=== PATIENT | male | born 1940 | race Caucasian/White ===

== ENCOUNTER 2016-11-22 13:49 | Day surgery (SDC) | payer OTHER ==
[~2016-11-22 13:49] MED LIST: CENTTAB9 PO; CIPR500T2 PO; LEVO88TA2 PO; LISI-363 PO; METR-1 PO; PROT40TA PO; ROBA500T PO; TERA5CAP3 PO; VITA250L PO; VITATAB25 PO
[2016-11-22 14:05] VITALS: BP 154/79; PULSE 75; RESP 20; TEMP 98.3; O2SAT 95
--- NOTE | 2016-11-22 17:44 | RADRPT ---
EXAM DATE/TIME: 11/22/2016 00:00 [facility] COMPARISON : No previous studies available for comparison. INDICATIONS : CONSULT FOR HEPATIC ABLATION OBJECTIVE: Temperature: 98.3 Heart Rate: 75 Blood Pressure: 154/79 Respiratory: 18 Oximetry: 95% PNEUMONIA VACCINE: YES HISTORY OF PRESENT ILLNESS: 76-year-old with known cirrhosis and an enlarging mass lesion in the hepatic dome PAST MEDICAL HISTORY : 1. Benign prostatic hyperplasia, BPH 2. Hypertension. 3. Hypothyriodism. 4. HEMOCHROMATOSIS 5. CIRRHOSIS 6. GI BLEED 7. PORTAL HYPERTENSION 8. LIVER MASS PAST SURGICAL HISTORY : 1. KNEE SURGERY-BOTH KNEES 2. COLONOSCOPY SOCIAL HISTORY : No alcohol use. Tobacco;former. ALLERGIES: IRON MEDICATIONS: 1. VITAMIN B12 500 mcg q.d. 2. CALCIUM 600/SNFC494 mg q.d. 3. SYNTHROID 88 mg q.d. 4. LISINOPRIL 20 mg q.d. 5. MULTIVITAMIN 1 mg q.d. 6. PANTOPRAZOLE 40 mg q.d. 7. TERASOZIN 5 mg q.d. 8. VITAMIN D3 1000 mcg q.d. PHYSICAL EXAMINATION: IMAGING STUDIES: Prior outside MRI was reviewed. This shows an enlarging mass lesion in the hepatic dome ASSESSMENT: Enlarging mass lesion in the hepatic dome with findings of cirrhosis PLAN: Patient is somewhat apprehensive about proceeding with intervention. I did discuss the options of cry oablation and embolization. Either way, I do believe its prudent to obtain a CT scan of the abdomen w ith and without contrast to determine if the lesion is visible on CT. Because of the position in the hepatic, the lesion may be amenable to Verran guidance. He plans to discuss his options with Dr. Ruby li. Patient will get back to us with his decision. TIME SPENT: 20 minutes Nagi Tobias MD on November 22, 2016 at 17:37 Board Certified Radiologist. This report was verified electronically.
== END 2016-11-22 14:45 | disposition home or self-care (01) ==
LOC: HROP 13:49 → HRIP 13:50 → HROP 14:45
PROVIDERS: ATTEND Radiology Body Imaging
DX: R16.0 Hepatomegaly, not elsewhere classified (principal); K74.60 Unspecified cirrhosis of liver; I10 Essential (primary) hypertension; N40.0 Benign prostatic hyperplasia without lower urinary tract symptoms; Z87.891 Personal history of nicotine dependence
CPT/HCPCS: 99212; G0463

== ENCOUNTER 2017-01-10 12:49 | Day surgery (SDC) | payer OTHER ==
[2017-01-10 13:22] VITALS: BP 136/81; PULSE 84; RESP 20; TEMP 98.2; O2SAT 92
--- NOTE | 2017-01-10 15:32 | RADRPT ---
EXAM DATE/TIME: 01/10/2017 00:00 [facility] COMPARISON : INDICATIONS : Liver Mass OBJECTIVE: Temperature: 98.2 Heart Rate: 84 Blood Pressure: 136/81 Respiratory: 20 Oximetry: 92 PNEUMONIA VACCINE: HISTORY OF PRESENT ILLNESS: 76 year-old with cirrhosis and pulmonary hypertension. Enlarging hypodense mass lesion near the hepat ic dome which is very difficult to see on postcontrast images. PAST MEDICAL HISTORY : 1. Hypertension. 2. Hypothyroidism. 3. Cirrhosis. 4. Hematochromotosis 5. GI bleed 6. BPH PAST SURGICAL HISTORY : 1. B knee arthroscopy SOCIAL HISTORY : No alcohol use. Tobacco;former. ALLERGIES: 1. Iron MEDICATIONS: 1. Levothyroxine 88 mcg q.d. 2. Pantopraxole 40 mg q.d. 3. Lisinopril 20 mg q.d. 4. Terazosin 5 mg q.d. 5. Multivitamin +Mineral q.d. PHYSICAL EXAMINATION: No acute distress. IMAGING STUDIES: Patient's latest CT from the end of December, and the previous MRI were reviewed. The showed lobula tions of the liver characteristic of cirrhosis. Enlarged varicosities are characteristic of portal hy pertension. 3 cm hypodensity near the hepatic dome is nonspecific ASSESSMENT: Enlarging hypodensity in the hepatic dome. Diagnostic considerations include hepatoma, regenerating n odule or cholangiocarcinoma. This is all on a background of cirrhosis and portal hypertension PLAN: Cryoablation TIME SPENT: 20 minutes Nagi Tobias MD on January 10, 2017 at 15:27 Board Certified Radiologist. This report was verified electronically.
[2017-01-11] MEDS ORDERED: LEVO88TA2 PO (08:24)
[2017-01-11] MEDS ORDERED: [UNRECOGNIZED DRUG - CODE] PO (08:24)
[2017-01-11] MEDS ORDERED: VITA1000 PO (08:24)
[2017-01-11] MEDS ORDERED: TERA5CAP3 PO (08:24)
[2017-01-11] MEDS ORDERED: LISI-515 PO (08:24)
[2017-01-11] MEDS ORDERED: CIPR-9 PO (08:24)
[2017-01-11] MEDS ORDERED: MULT1TAB84 PO (08:24)
[2017-01-11] MEDS ORDERED: PROT40TA PO (08:24)
== END 2017-01-10 14:45 | disposition home or self-care (01) ==
LOC: HROP 12:49 → HRIP 12:49 → HROP 14:45
PROVIDERS: ATTEND Internal Medicine Hematology & Oncology
DX: R16.0 Hepatomegaly, not elsewhere classified (principal)

== ENCOUNTER 2017-01-11 07:36 | Day surgery (SDC) | payer OTHER ==
[~2017-01-11] VITALS: Ht 182.9 cm; Wt 87.0 kg
[2017-01-11] VITALS (8 sets, daily range): BP systolic 92–139; BP diastolic 50–89; PULSE 63–88; RESP 16–20; TEMP 97.4–97.7; O2SAT 92–97
[2017-01-11] MEDS ORDERED: PROT40TA PO (08:24)
[2017-01-11] MEDS ORDERED: LEVO88TA2 PO (08:24)
[2017-01-11] MEDS ORDERED: [UNRECOGNIZED DRUG - CODE] PO (08:24)
[2017-01-11] MEDS ORDERED: CIPR-9 PO (08:24)
[2017-01-11] MEDS ORDERED: LISI-515 PO (08:24)
[2017-01-11] MEDS ORDERED: TERA5CAP3 PO (08:24)
[2017-01-11] MEDS ORDERED: MULT1TAB84 PO (08:24)
[2017-01-11] MEDS ORDERED: VITA1000 PO (08:24)
[2017-01-11] MEDS ORDERED: INSULIN HUMAN REGULAR 1,000 UNITS/10 ML VIAL SQ PRN (08:30)
[2017-01-11] MEDS ORDERED: LACTATED RINGER'S 1000 ML IV PRN (08:30)
[2017-01-11] MEDS ORDERED: METOPROLOL TARTRATE 25 MG TAB PO PRN (08:30)
[2017-01-11] MEDS ORDERED: SODIUM CHLORID 0.9% 500 ML IV PRN (08:30)
[2017-01-11] MEDS ORDERED: CHLORHEXIDINE GLUCONATE 2 % 1 PACK (2 CLOTHS) TOPICAL PRN (08:30)
[2017-01-11] MEDS ORDERED: POVIDONE IODINE 5% (ANTISEPSIS KIT) 4 APPLICATIONS EACH NARE PRN (08:30)
[2017-01-11] MEDS ORDERED: ceFAZolin 2 GM PREMIX 50 ML IV SCH (08:30)
[2017-01-11] MEDS ORDERED: SODIUM CHLOR 0.9% 1000 ML INJ 1,000 ML IV SCH (09:00)
[2017-01-11] MEDS ORDERED: PROPOFOL 200 MG/20 ML AMP IV ONE (09:04)
[2017-01-11] MEDS ORDERED: ONDANSETRON HCL 4 MG/2 ML VIAL IV PUSH ONE (09:04)
[2017-01-11 09:07] LABS: AUTOMATED NEUTROPHIL # 2.5 TH/MM3 (1.8-7.7); BASOPHIL % 0.8 % (0.0-2.0); EOSINOPHIL # 0.1 TH/MM3 (0-0.4); EOSINOPHIL % 3.6 % (0.0-4.0); HEMATOCRIT 42.2 % (39.0-51.0); LYMPHOCYTE # 0.8 TH/MM3 (1.0-4.8); MEAN CELL VOLUME 100.2 FL (80.0-100.0); MEAN CORPUSCULAR HEMOGLOBIN 33.6 PG (27.0-34.0); MEAN CORPUSCULAR HGB CONC 33.6 % (32.0-36.0); MONO % 9.5 % (0.0-8.0); NEUT % 65.1 % (16.0-70.0); PLATELET COUNT 82 TH/MM3 (150-450); RED BLOOD COUNT 4.21 MIL/MM3 (4.50-5.90); RED CELL DISTRIBUTION WIDTH 14.6 % (11.6-17.2); WHITE BLOOD COUNT 3.8 TH/MM3 (4.0-11.0)
[2017-01-11 09:08] LABS: HEMO FLAGS AUTO DIFF
[2017-01-11] MEDS ORDERED: LIDOCAINE 1%/EPINEPHrine 1:100,000 SOLN 20 ML VIAL ONE (09:15)
[2017-01-11 09:16] LABS: INTERNATIONAL NORMALIZED RATIO 1.2 RATIO; PROTHROMBIN TIME - PATIENT 13.8 SEC (9.8-11.6)
[2017-01-11 09:22] LABS: BICARBONATE 25.4 MEQ/L (21.0-32.0)
[2017-01-11 09:30] LABS: PLATELET ESTIMATE SMEAR LOW (NORMAL); PLATELET MORPHOLOGY NORMAL (NORMAL); SCAN/DIFF AUTO DIFF CONFIRMED
[2017-01-11] MEDS ORDERED: fentaNYL CITRATE 250 MCG/5 ML AMP ONE (13:47)
--- NOTE | 2017-01-11 13:57 | PD.RAD ---
Post CT Procedure Prog Note Pre Procedure Diagnosis: (1) Liver mass Post Procedure Diagnosis: (1) Liver mass Procedure Date: January 11, 2017 Supervising Radiologist: Nagi Tobias Proceduralist/Assist: RT Tiffanie(R)(CT) Anesthesia: General Plan of Activity Patient to Unit: PACU Patient Condition: Good See PACS Report for procedural detail/treatment Biopsy Imaging Guidance: CT Side: Right Biopsy Procedure: Liver (Cirrhosis with mass) Findings: Liver mass treated with 4-1.7 cryo needles Nagi Tobias MD January 11, 2017 13:57
--- NOTE | 2017-01-11 15:46 | EKG ---
Date Performed: 01/11/2017 Time Performed: 08:45:45 PTAGE: 76 years EKG: Sinus rhythm Compared to prior tracing no significant change NORMAL ECG PREVIOUS TRACING : 12/06/2014 21.10 DOCTOR: Gael Romero Interpretating Date/Time 01/11/2017 15:44:42
--- NOTE | 2017-01-11 17:16 | RADRPT ---
EXAM DATE/TIME: 01/11/2017 11:09 INDICATIONS : Liver mass. Anesthesia and pain control was provided by the Anesthesia department. Prophylactic antibiotics were administered with appropriate pre-procedure timing. Vancomycin within 2 hrs of procedure, Ancef (or alternative) within 1 hr of procedure start. Intra-procedural antibiotics were given as prescribed above. DEVICE(S): 1.) 16 gauge Cryoablation probe x4 (1.7) MEDICAL HISTORY : Cirrhosis. Hypertension. Hemochromatosis. Liver mass. SURGICAL HISTORY : None. ENCOUNTER: Initial ACUITY: 1 day PAIN SCORE: 0/10 LOCATION: Liver PROCEDURE : 1. CT guided cryoablation. Under sterile conditions and using aseptic technique with CT guidance the mass was localized and sati sfactory approach was taken to access the lesion. Using automated exposure control and adjustment of the mA and/or kV according to patient size, radiation dose was kept as low as reasonably achievable to obtain optimal diagnostic quality images. [place] Cryoprobes were employed using percutaneous technique employing the prescribed probes. A freeze-thaw, freeze-thaw technique was employed and serial imaging demonstrated an ice ball encomp assing the entire lesion. Post procedure images demonstrate expected postoperative changes without e vidence of hematoma. CONCLUSION: Uncomplicated cryoablation as above. Nagi Tobias MD on January 11, 2017 at 17:14 Board Certified Radiologist. This report was verified electronically.
== END 2017-01-11 17:49 | disposition home or self-care (01) ==
LOC: HROP 07:36 → HRIP 07:37 → HROP 17:49
PROVIDERS: ATTEND Internal Medicine Hematology & Oncology
DX: R16.0 Hepatomegaly, not elsewhere classified (principal); I10 Essential (primary) hypertension; K74.60 Unspecified cirrhosis of liver; E83.119 Hemochromatosis, unspecified
CPT/HCPCS: 47383; 77013; 80048; 85025; 85610; 85730; 93005; C2618; J3010; J2405

== ENCOUNTER 2017-01-20 13:12 | Day surgery (SDC) | payer OTHER ==
[~2017-01-20 13:12] MED LIST changes: -CENTTAB9 PO; +CIPR-9 PO; -CIPR500T2 PO; -LISI-363 PO; +LISI-515 PO; -METR-1 PO; +MULT1TAB84 PO; -ROBA500T PO; +VITA1000 PO; -VITA250L PO; -VITATAB25 PO; +[UNRECOGNIZED DRUG - CODE] PO
[2017-01-20 13:32] VITALS: BP 124/81; PULSE 85; RESP 20; TEMP 98.2; O2SAT 93
--- NOTE | 2017-01-20 14:14 | RADRPT ---
EXAM DATE/TIME: 01/20/2017 00:00 [place] Corrected on: February 02, 2017; Removed internal Tech note [facility] COMPARISON : INDICATIONS : FOLLOW UP LIVER CRYOABLATION OBJECTIVE: Temperature: 98.2 Heart Rate: 85 Blood Pressure: 124/81 Respiratory: 20 Oximetry: 93 HISTORY OF PRESENT ILLNESS: Post hepatic cryoablation PHYSICAL EXAMINATION: Cryoablation access sites are healing appropriately. No fluctuance or erythema. Patient has no compla ints ASSESSMENT: No issues post cryotherapy PLAN: Followup imaging in 3-6 months TIME SPENT: Zero minutes. Patient was seen by the nurse only. No questions for the Dr. Nagi Tobias MD on January 20, 2017 at 13:59 Board Certified Radiologist. This report was verified electronically.
== END 2017-01-20 13:55 | disposition home or self-care (01) ==
LOC: HROP 13:12 → HRIP 13:17 → HROP 13:55
PROVIDERS: ATTEND Radiology Body Imaging
DX: Z09 Encounter for follow-up examination after completed treatment for conditions other than malignant neoplasm (principal)

== ENCOUNTER 2017-05-11 07:17 | Inpatient (IN) | payer OTHER, MEDICARE ==
[2017-05-11] VITALS (7 sets, daily range): BP systolic 120–143; BP diastolic 69–78; PULSE 96–103; RESP 18–24; TEMP 97.4–98.6; O2SAT 92–98
[~2017-05-11] VITALS: Ht 182.9 cm; Wt 91.0 kg
[2017-05-11] MEDS ORDERED: IOHEXOL 350 MG/ML 10 ML VIAL (for RAD DIAG) IVCONTRAST ONE (07:18)
[2017-05-11] MEDS ORDERED: PANTOPRAZOLE INJ 80 MG in SODIUM CHLORIDE 0.9% INJ 35 ML IV ONE ×2 (07:41→22:56)
[2017-05-11] MEDS ORDERED: PANTOPRAZOLE INJ 80 MG in SODIUM CHLORIDE 0.9% INJ 100 ML IV SCH (07:41)
[2017-05-11] MEDS ORDERED: MULTTAB67 PO (07:42)
[2017-05-11] MEDS ORDERED: SODIUM CHLORIDE 0.9% FLUSH 10 ML FLUSH IVF PRN (07:45)
[2017-05-11] MEDS ORDERED: ONDANSETRON HCL 4 MG/2 ML VIAL IVP ONE (07:45)
--- NOTE | 2017-05-11 07:48 | PD ---
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 States he has been nauseous but not vomiting and did spit up a very small amount of red blood today. Pt complains of generalized abdominal pain for 2 days. Denies any fever, chest pain, sob, focal weakness or numbness. He follows with Dr. Henriquez and had MRI abdomen 04/15/17 that showed 5x3.3x3.4cm lesion in liver. Pt is to follow up in 8 weeks with repeat lab and repeat MRI in 16 weeks. Pt has not had follow up with GI after GI bleed in 2013. PFSH Past Medical History Cancer: Yes (POSSIBLE HAPATIC CARCANOMA ) Cardiovascular Problems: Yes Cirrhosis: Yes Diabetes: No Diminished Hearing: No Endocrine: Yes Gastrointestinal Disorders: Yes (black stools and vomiting blood last 2 days) Genitourinary: Yes Hypertension: Yes Implanted Vascular Access Dvce: No Musculoskeletal: No Neurologic: Yes Psychiatric: No Reproductive: Yes (enlarged prostrarte) Respiratory: Yes Immunizations Current: Yes Thyroid Disease: Yes Past Surgical History Pacemaker: No Other Surgery: Yes Social History Alcohol Use: No Tobacco Use: No Substance Use: No Allergies-Medications (Allergen,Severity, Reaction): Coded Allergies: codeine (Unverified Allergy, Severe, 05/11/17) AIRWAY ISSUE 01/11/2017 - Patient denies allergy; states it is his 's allergy. ferrous fumarate (Unverified Allergy, Severe, holds iron in blood, 05/11/17) not able to process iron efficiently ferrous sulfate (Unverified Allergy, Severe, holds iron in blood, 05/11/17) not able to process iron efficiently ferumoxytol (Unverified Allergy, Severe, holds iron in blood, 05/11/17) not able to process iron efficiently iron (Unverified Allergy, Severe, holds iron in blood, 05/11/17) not able to process iron efficiently multivitamin infusion, adult no.4 with vitamin K (Unverified Allergy, Severe, holds iron in blood, 05/11/17) not able to process iron efficiently multivitamin with iron,other minerals (Unverified Allergy, Severe, holds iron in blood, 05/11/17) not able to process iron efficiently Reported Meds & Prescriptions Reported Meds & Active Scripts Active Reported Multiple Vitamin 1 Tab 1 Tab PO DAILY Terazosin (Terazosin HCl) 5 Mg Cap 5 Mg PO HS Protonix (Pantoprazole Sodium) 40 Mg Tab 40 Mg PO DAILY Lisinopril 20 Mg Tab 20 Mg PO DAILY Levothyroxine (Levothyroxine Sodium) 88 Mcg Tab 88 Mcg PO DAILY D 1000 (Cholecalciferol) 1,000 Unit Tab 4,000 PO DAILY Review of Systems Except as stated in HPI: all other systems reviewed are Neg Physical Exam Narrative GENERAL: 76yo M in mild distress. SKIN: Focused skin assessment warm/dry. Pale. HEAD: Atraumatic. Normocephalic. EYES: Pupils equal and round. No scleral icterus. No injection or drainage. ENT: No nasal bleeding or discharge. Mucous membranes pink and moist. NECK: Trachea midline. No JVD. CARDIOVASCULAR: Regular rate and rhythm. No murmur appreciated. RESPIRATORY: No accessory muscle use. Clear to auscultation. Breath sounds equal bilaterally. GASTROINTESTINAL: Abdomen soft, +TTP RUQ. No rebound tenderness or guarding. RECTAL: Did not see much stool but hemaprompt positive. MUSCULOSKELETAL: No obvious deformities. No clubbing. No cyanosis. No edema. NEUROLOGICAL: Awake and alert. No obvious cranial nerve deficits. Motor grossly within normal limits. Normal speech. PSYCHIATRIC: Appropriate mood and affect; insight and judgment normal. Data Data Last Documented VS Vital Signs Date Time Temp Pulse Resp B/P (MAP) Pulse Ox O2 Delivery O2 Flow Rate FiO2 05/11/17 07:37 18 05/11/17 07:31 96 136/69 (91) 97 05/11/17 07:20 98.3 Room Air Orders Orders Basic Metabolic Panel (Bmp) (05/11/17 07:41) Complete Blood Count With Diff (05/11/17 07:41) Lipase (05/11/17 07:41) Ammonia (05/11/17 07:41) Prothrombin Time / Inr (Pt) (05/11/17 07:41) Act Partial Throm Time (Ptt) (05/11/17 07:41) Type And Screen (05/11/17 07:41) Ecg Monitoring (05/11/17 07:41) Iv Access Insert/Monitor (05/11/17 07:41) Oximetry (05/11/17 07:41) Ondansetron Inj (Zofran Inj) (05/11/17 07:45) Sodium Chloride 0.9% Flush (Ns Flush) (05/11/17 07:45) Sodium Chloride 0.9... W/Pantoprazole In (05/11/17 07:41) Sodium Chloride 0.9... W/Pantoprazole In (05/11/17 07:41) Hepatic Functional Panel (05/11/17 07:41) Ct Abd/Pel W Iv Contrast(Rout) (05/11/17 ) Urinalysis - C+S If Indicated (05/11/17 07:48) Consult Gastroenterology (05/11/17 ) (Hub Use Only)Inp Phy Cons/Ref (05/11/17 ) Iohexol 350 Inj (Omnipaque 350 Inj) (05/11/17 07:18) Comprehensive Metabolic Panel (05/12/17 06:00) Free Thyroxine (T4) (05/12/17 06:00) Hemoglobin (Hgb) A1c (05/12/17 06:00) Magnesium (Mg) (05/12/17 06:00) Phosphorus (Po4) (05/12/17 06:00) Thyroid Stimulating Hormone (05/12/17 06:00) Complete Blood Count With Diff (05/12/17 06:00) Lactulose Liq (Lactulose Liq) (05/11/17 11:15) Admit Order (Ed Use Only) (05/11/17 11:11) Labs Laboratory Tests Test 05/11/17 07:45 White Blood Count 4.1 TH/MM3 Red Blood Count 3.23 MIL/MM3 Hemoglobin 12.0 GM/DL Hematocrit 34.1 % Mean Corpuscular Volume 105.8 FL Mean Corpuscular Hemoglobin 37.0 PG Mean Corpuscular Hemoglobin Concent 35.0 % Red Cell Distribution Width 14.6 % Platelet Count 73 TH/MM3 Mean Platelet Volume 9.0 FL Neutrophils (%) (Auto) 72.8 % Lymphocytes (%) (Auto) 16.2 % Monocytes (%) (Auto) 8.7 % Eosinophils (%) (Auto) 1.7 % Basophils (%) (Auto) 0.6 % Neutrophils # (Auto) 3.0 TH/MM3 Lymphocytes # (Auto) 0.7 TH/MM3 Monocytes # (Auto) 0.4 TH/MM3 Eosinophils # (Auto) 0.1 TH/MM3 Basophils # (Auto) 0.0 TH/MM3 CBC Comment AUTO DIFF Differential Comment AUTO DIFF CONFIRMED Prothrombin Time 15.7 SEC Prothromb Time International Ratio 1.4 RATIO Activated Partial Thromboplast Time 27.7 SEC Blood Urea Nitrogen 20 MG/DL Creatinine 0.94 MG/DL Random Glucose 141 MG/DL Total Protein 6.3 GM/DL Albumin 2.4 GM/DL Calcium Level 9.4 MG/DL Alkaline Phosphatase 78 U/L Aspartate Amino Transf (AST/SGOT) 69 U/L Alanine Aminotransferase (ALT/SGPT) 51 U/L Total Bilirubin 2.7 MG/DL Direct Bilirubin 1.1 MG/DL Sodium Level 139 MEQ/L Potassium Level 4.0 MEQ/L Chloride Level 106 MEQ/L Carbon Dioxide Level 26.7 MEQ/L Anion Gap 6 MEQ/L Estimat Glomerular Filtration Rate 78 ML/MIN Indirect Bilirubin 1.6 MG/DL Ammonia 179 MCMOL/L Lipase 138 U/L MDM Medical Decision Making Medical Screen Exam Complete: Yes Emergency Medical Condition: Yes Differential Diagnosis Lower GI bleed vs. upper GI bleed vs. cirrhosis vs. diverticulitis Narrative Course 76yo M with PMH of liver cirrhosis, hepatocellular carcinoma here with black stool and spitting up blood. Pt has not had any episodes of hematemesis. Initially mildly tachycardic at 102bpm. Labs reviewed, no leukocytosis. H/H is low at 12/34.1. Last H/H was 14.2/42.2 but he had 12/35.2 in 2014. Ammonia is elevated at 179, will give lactulose. Pt with good mental status. AAOx3. Elevated bilirubin and AST. CTa/p showed low density lesion in liver. 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 Pt reevaluated at bedside after NS IVF and zofran and states he feels better. Pt states he wants to hold off on pain medication. Given pt's history, will admit for GI bleed and have GI evaluate the patient. GI consult placed. Discussed with hospitalist Dr. Kilgore and accepted to his service. [facility] Point of Care Internal Pos. & Neg. Controls: Passed Fecal Specimen Occult Blood: Positive Omayra Kaiser DO May 11, 2017 07:48
[2017-05-11 08:03] LABS: BASOPHIL % 0.6 % (0.0-2.0); EOSINOPHIL # 0.1 TH/MM3 (0-0.4); EOSINOPHIL % 1.7 % (0.0-4.0); HEMATOCRIT 34.1 % (39.0-51.0); LYMPH % 16.2 % (9.0-44.0); LYMPHOCYTE # 0.7 TH/MM3 (1.0-4.8); MEAN CELL VOLUME 105.8 FL (80.0-100.0); MONO % 8.7 % (0.0-8.0); NEUT % 72.8 % (16.0-70.0); PLATELET COUNT 73 TH/MM3 (150-450); RED BLOOD COUNT 3.23 MIL/MM3 (4.50-5.90); RED CELL DISTRIBUTION WIDTH 14.6 % (11.6-17.2); WHITE BLOOD COUNT 4.1 TH/MM3 (4.0-11.0)
[2017-05-11 08:10] LABS: HEMO FLAGS AUTO DIFF
[2017-05-11 08:13] LABS: APTT (PATIENT) 27.7 SEC (24.3-30.1); INTERNATIONAL NORMALIZED RATIO 1.4 RATIO; PROTHROMBIN TIME - PATIENT 15.7 SEC (9.8-11.6)
[2017-05-11 08:23] LABS: BICARBONATE 26.7 MEQ/L (21.0-32.0)
[2017-05-11 08:31] LABS: INDIRECT BILIRUBIN 1.6 MG/DL (0.0-0.8); TOTAL BILIRUBIN ADULT 2.7 MG/DL (0.2-1.0)
[2017-05-11 09:00] LABS: SCAN/DIFF AUTO DIFF CONFIRMED
--- NOTE | 2017-05-11 10:19 | RADRPT ---
EXAM DATE/TIME: 05/11/2017 09:33 [facility] COMPARISON: CT GUIDED CRYO ABLATION LIVER, RIGHT, January 11, 2017, 11:09. CT ABDOMEN & PELVIS W CONTRAST, December 06, 2014, 23:45. INDICATIONS : Nausea, dark stools, history of gastrointestinal bleeding. IV CONTRAST: 96 cc Omnipaque 350 (iohexol) IV ORAL CONTRAST: No oral contrast ingested. RADIATION DOSE: 12.32 CTDIvol (mGy) MEDICAL HISTORY : Cardiovascular disease. Hypertension. Liver cancer. SURGICAL HISTORY : Cryoablation of liver. ENCOUNTER: Initial ACUITY: 1 day PAIN SCALE: 0/10 LOCATION: lower quadrant TECHNIQUE: Volumetric scanning of the abdomen and pelvis was performed. Using automated exposure control and ad justment of the mA and/or kV according to patient size, radiation dose was kept as low as reasonably achievable to obtain optimal diagnostic quality images. DICOM format image data is available electro nically for review and comparison. FINDINGS: LOWER LUNGS: The visualized lower lungs are clear. LIVER: Cirrhotic appearance. Low density in the central dome at site of recently treated mass. No evidence o f biliary ductal dilatation. There is nonocclusive thrombus present in the visualized upper superior mesenteric vein extending into the portal vein. The portal vein is very small in caliber with primary shunting of portal venous return through massive variceal collaterals including enormous gastric fun lakisha varices. SPLEEN: Enlarged. Scattered tiny granulomatous calcifications and mild lateral capsular calcification. PANCREAS: Within normal limits. KIDNEYS: Normal in size and shape. There is no mass, stone or hydronephrosis. ADRENAL GLANDS: Within normal limits. VASCULAR: There is no aortic aneurysm. BOWEL/MESENTERY: Massive gastric fundal varices. Mild distention of the stomach. Distal colonic diverticulosis without evidence of abnormal dilatation, wall thickening or focal inflammatory change. ABDOMINAL WALL: Small fat containing umbilical hernia. RETROPERITONEUM: There is no lymphadenopathy. BLADDER: No wall thickening or mass. REPRODUCTIVE: Within normal limits. INGUINAL: There is no lymphadenopathy or hernia. MUSCULOSKELETAL: Within normal limits for patient age. CONCLUSION: Low-density lesion in the liver related to recent cryoablation of liver mass. Baseline cirrhotic treviño ge and stigmata of severe portal hypertension. 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 Colonic diverticulosis Timmy Dawn MD on May 11, 2017 at 10:07 Board Certified Radiologist. This report was verified electronically.
[2017-05-11] MEDS ORDERED: LACTULOSE SYRUP 20 GM/30 ML CUP PO PRN (11:15)
[2017-05-11] MEDS ORDERED: ACETAMINOPHEN 325 MG TAB PO PRN ×2 (11:15)
[2017-05-11] MEDS ORDERED: LACTULOSE SYRUP 20 GM/30 ML CUP PO ONE (11:15)
[2017-05-11] MEDS ORDERED: MAGNESIUM HYDROXIDE SUSP 30 ML CUP PO PRN (11:15)
[2017-05-11] MEDS ORDERED: NALOXONE HCL 0.4 MG/ML AMP IV PRN (11:15)
[2017-05-11] MEDS ORDERED: PROCHLORPERAZINE 25 MG SUPP RECTAL PRN (11:15)
[2017-05-11] MEDS ORDERED: SENNOSIDES 8.6 MG TAB PO PRN (11:15)
[2017-05-11] MEDS ORDERED: HALOPERIDOL LACTATE 5 MG/ML AMP IM PRN (11:15)
[2017-05-11] MEDS ORDERED: traMADol HCL 50 MG TAB PO PRN ×2 (11:15)
[2017-05-11] MEDS ORDERED: SODIUM CHLORIDE 0.9% FLUSH 10 ML FLUSH IV FLUSH PRN ×3 (11:15→11:30)
[2017-05-11] MEDS ORDERED: MORPHINE SULFATE 4 MG/ML INJ IV PRN ×2 (11:15)
[2017-05-11] MEDS ORDERED: BISACODYL 10 MG SUPP RECTAL PRN (11:15)
[2017-05-11] MEDS ORDERED: ONDANSETRON HCL 4 MG/2 ML VIAL IV PUSH ONE ×2 (12:00→22:15)
--- NOTE | 2017-05-11 12:50 | HHI.HP ---
[facility] Non-Staff Admission Diagnosis GI bleed Diagnoses: (1) Liver mass Diagnosis: Principal (2) Chronic thrombocytopenia Diagnosis: Principal (3) Abdominal pain Diagnosis: Principal (4) GI bleed Diagnosis: Principal (5) HTN (hypertension) Diagnosis: Secondary (6) Anemia due to acute blood loss (7) Hypothyroidism Diagnosis: Secondary (8) Hemochromatosis Diagnosis: Secondary Chief Complaint: Abdominal pain and swelling Travel History International Travel<30 Days: No Contact w/Intl Traveler <30 Da: No Traveled to Known Affected Are: No History of Present Illness 76yo M with PMH of presumed hepatocellular carcinoma, hemochromatosis, cirrhosis , upper GI bleed, BPH presents to the ED with c/o black tarry stool for 2 days. States he has been nauseous but not vomiting and did spit up a very small amount of red blood today. Pt complains of generalized abdominal pain for 2 days. Denies any fever, chest pain, sob, focal weakness or numbness. He follows with Dr. Henriquez and had MRI abdomen 04/15/17 that showed 5x3.3x3.4cm lesion in liver. Pt is to follow up in 8 weeks with repeat lab and repeat MRI in 16 weeks. Pt has not had follow up with GI after GI bleed in 2013. Has elevated ammonia level but is completely lucid and able to answer all questions totally appropriately Review of Systems Constitutional: COMPLAINS OF: Fatigue, DENIES: Diaphoretic episodes, Fever, Weight gain, Weight loss, Chills, Dizziness, Change in appetite Endocrine: DENIES: Heat/cold intolerance, Polydipsia, Polyuria, Polyphagia Eyes: DENIES: Blurred vision, Diplopia, Eye inflammation, Eye pain, Vision loss , Photosensitivity Ears, nose, mouth, throat: DENIES: Tinnitus, Hearing loss, Vertigo, Nasal discharge, Oral lesions, Throat pain, Hoarseness, Ear Pain Respiratory: DENIES: Cough, Snoring, Wheezing, Hemoptysis, Sputum production, Shortness of breath Cardiovascular: DENIES: Chest pain, Palpitations, Syncope, Dyspnea on Exertion , PND, Lower Extremity Edema Gastrointestinal: COMPLAINS OF: Abdominal pain, Nausea, Vomiting, DENIES: Black stools, Bloody stools, Constipation, Diarrhea, Difficulty Swallowing Genitourinary: DENIES: Sexual dysfunction, Urinary frequency, Urinary incontinence, Urgency, Hematuria, Dysuria, Nocturia, Penile Discharge Musculoskeletal: DENIES: Joint pain, Muscle aches, Stiffness, Joint Swelling Integumentary: DENIES: Abnormal pigmentation, Nail changes, Pruritus Hematologic/lymphatic: DENIES: Bruising, Lymphadenopathy Immunologic/allergic: DENIES: Eczema, Urticaria Neurologic: DENIES: Abnormal gait, Headache, Localized weakness, Paresthesias, Seizures, Speech Problems Psychiatric: DENIES: Anxiety, Confusion, Mood changes, Depression, Hallucinations, Agitation, Suicidal Ideation, Homicidal Ideation Past Family Social History Past Medical History Hepatocellular carcinoma Hemochromatosis Cirrhosis History of upper GI bleed BPH Hypertension Hypothyroidism GERD Past Surgical History Bilateral knee surgeries Reported Medications Reported Meds & Active Scripts Active Reported Multiple Vitamin 1 Tab 1 Tab PO DAILY Terazosin (Terazosin HCl) 5 Mg Cap 5 Mg PO HS Protonix (Pantoprazole Sodium) 40 Mg Tab 40 Mg PO DAILY Lisinopril 20 Mg Tab 20 Mg PO DAILY Levothyroxine (Levothyroxine Sodium) 88 Mcg Tab 88 Mcg PO DAILY D 1000 (Cholecalciferol) 1,000 Unit Tab 4,000 PO DAILY Allergies: Coded Allergies: codeine (Unverified Allergy, Severe, 05/11/17) AIRWAY ISSUE 01/11/2017 - Patient denies allergy; states it is his 's allergy. ferrous fumarate (Unverified Allergy, Severe, holds iron in blood, 05/11/17) not able to process iron efficiently ferrous sulfate (Unverified Allergy, Severe, holds iron in blood, 05/11/17) not able to process iron efficiently ferumoxytol (Unverified Allergy, Severe, holds iron in blood, 05/11/17) not able to process iron efficiently iron (Unverified Allergy, Severe, holds iron in blood, 05/11/17) not able to process iron efficiently multivitamin infusion, adult no.4 with vitamin K (Unverified Allergy, Severe, holds iron in blood, 05/11/17) not able to process iron efficiently multivitamin with iron,other minerals (Unverified Allergy, Severe, holds iron in blood, 05/11/17) not able to process iron efficiently Active Ordered Medications Current Medications Ondansetron HCl (Zofran Inj) 4 mg ONCE ONCE IVP Last administered on 05/11/17 11:29; Start 05/11/17 at 07:45; Stop 05/11/17 at 07:46; Status DC Sodium Chloride (NS Flush) 2 ml UNSCH PRN IVF FLUSH AFTER USING IV ACCESS; Start 05/11/17 at 07:45 Pantoprazole Sodium 80 mg/ Sodium Chloride 35 ml @ 420 mls/hr Q5M ONCE IV Last administered on 05/11/17 11:29; Start 05/11/17 at 07:41; Stop 05/11/17 at 07: 45; Status DC Pantoprazole Sodium 80 mg/ Sodium Chloride 100 ml @ 10 mls/hr Q10H IV Last administered on 05/11/17 11:29; Start 05/11/17 at 07:41 Iohexol (Omnipaque 350 Inj) 96 ml STK-MED ONCE IVCONTRAST Last administered on 05/11/17 07:18; Start 05/11/17 at 07:18; Stop 05/11/17 at 09:50; Status DC Lactulose (Lactulose Liq) 30 ml ONCE ONCE PO ; Start 05/11/17 at 11:15; Stop 05/11/17 at 11:16; Status DC Sodium Chloride (NS Flush) 2 ml UNSCH PRN IV FLUSH FLUSH AFTER USING IV ACCESS ; Start 05/11/17 at 11:15; Status UNV Sodium Chloride (NS Flush) 2 ml BID IV FLUSH ; Start 05/11/17 at 21:00; Status UNV Lactulose (Lactulose Liq) 30 ml Q6H PO ; Start 05/11/17 at 11:15; Status UNV Rifaximin (Xifaxan) 550 mg BID PO ; Start 05/11/17 at 21:00; Status UNV Haloperidol Lactate (Haldol Inj) 5 mg Q6H PRN IM AGITATION; Start 05/11/17 at 11 :15; Status UNV Thiamine HCl (Vitamin B1) 100 mg DAILY PO ; Start 05/12/17 at 09:00; Status UNV Sodium Chloride (NS Flush) 2 ml UNSCH PRN IV FLUSH FLUSH AFTER USING IV ACCESS ; Start 05/11/17 at 11:15; Status UNV Sodium Chloride (NS Flush) 2 ml BID IV FLUSH ; Start 05/11/17 at 21:00; Status UNV Acetaminophen (Tylenol) 650 mg Q4H PRN PO TEMP > 100.4; Start 05/11/17 at 11:15 ; Status UNV Ondansetron HCl (Zofran Inj) 4 mg Q6H PRN IVP NAUSEA OR VOMITING; Start at 11:15; Status UNV Prochlorperazine (Compazine Supp) 25 mg Q12H PRN SD NAUSEA OR VOMITING; Start 05/11/17 at 11:15; Status UNV Acetaminophen (Tylenol) 650 mg Q6H PRN PO PAIN SCALE 1 TO 2; Start 05/11/17 at 11:15; Status UNV Morphine Sulfate (Morphine Inj) 2 mg Q3H PRN IV Pain 3-5; if unable to take PO ; Start 05/11/17 at 11:15; Status UNV Morphine Sulfate (Morphine Inj) 4 mg Q3H PRN IV Pain 6-10;if unable to take PO ; Start 05/11/17 at 11:15; Status UNV Tramadol HCl (Ultram) 50 mg Q4H PRN PO PAIN SCALE 3 TO 5; Start 05/11/17 at 11: 15; Status UNV Tramadol HCl (Ultram) 100 mg Q4H PRN PO PAIN SCALE 6 TO 10; Start 05/11/17 at 11 :15; Status UNV Naloxone HCl (Narcan Inj) 0.4 mg UNSCH PRN IV SEE LABEL COMMENTS; Start at 11:15; Status UNV Senna/Docusate Sodium (Deana-Colace) 1 tab BID PO ; Start 05/11/17 at 21:00; Status UNV Magnesium Hydroxide (Milk Of Magnesia Liq) 30 ml Q12H PRN PO MILD - MODERATE CONSTIPATION; Start 05/11/17 at 11:15; Status UNV Sennosides (Senokot) 17.2 mg Q12H PRN PO MODERATE - SEVERE CONSTIPATION; Start 05/11/17 at 11:15; Status UNV Bisacodyl (Dulcolax Supp) 10 mg DAILY PRN RECTAL SEVERE CONSITIPATION; Start at 11:15; Status UNV Lactulose (Lactulose Liq) 30 ml DAILY PRN PO SEVERE CONSITIPATION; Start at 11:15; Status UNV Levothyroxine Sodium (Synthroid) 88 mcg DAILY PO ; Start 05/12/17 at 09:00; Status UNV Lisinopril (Prinivil) 20 mg DAILY PO ; Start 05/12/17 at 09:00; Status UNV Pantoprazole Sodium (Protonix) 40 mg DAILY PO ; Start 05/12/17 at 09:00; Stop 05/12/17 at 09:00; Status DC Terazosin HCl (Hytrin) 5 mg HS PO ; Start 05/11/17 at 21:00; Status UNV Non-Formulary Medication 1 tab DAILY PO ; Start 05/12/17 at 09:00; Status UNV Sodium Chloride (NS Flush) 2 ml UNSCH PRN IV FLUSH FLUSH AFTER USING IV ACCESS ; Start 05/11/17 at 11:30; Status UNV Sodium Chloride (NS Flush) 2 ml BID IV FLUSH ; Start 05/11/17 at 21:00; Status UNV Pantoprazole Sodium (Protonix Inj) 40 mg BID IV ; Start 05/11/17 at 21:00; Status UNV Family History Hypertension Social History Denies any current alcohol tobacco or illicits Physical Exam Vital Signs Vital Signs Date Time Temp Pulse Resp B/P (MAP) Pulse Ox O2 Delivery O2 Flow Rate FiO2 05/11/17 11:41 95 21 05/11/17 07:37 18 05/11/17 07:31 96 18 136/69 (91) 97 05/11/17 07:20 98.3 102 24 137/69 (91) 92 Room Air Physical Exam GENERAL: This is a well-nourished, well-developed patient, in no apparent distress. SKIN: No rashes, ecchymoses or lesions. Cool and dry. HEAD: Atraumatic. Normocephalic. No temporal or scalp tenderness. EYES: Pupils equal round and reactive. Extraocular motions intact. No scleral icterus. No injection or drainage. ENT: Nose without bleeding, purulent drainage or septal hematoma. Throat without erythema, tonsillar hypertrophy or exudate. Uvula midline. Airway patent. Tongue is midline NECK: Trachea midline. No JVD or lymphadenopathy. Supple, nontender, no meningeal signs. CARDIOVASCULAR: Regular rate and rhythm without murmurs, gallops, or rubs. S1- S2 no S3 or S4 no heave or thrill RESPIRATORY: Clear to auscultation. Breath sounds equal bilaterally. No wheezes , rales, or rhonchi. GASTROINTESTINAL: Abdomen soft, mild tenderness, distention. , or palpable masses. No guarding. Enlarged liver MUSCULOSKELETAL: Extremities without clubbing, cyanosis, or edema. No joint tenderness, effusion, or edema noted. No calf tenderness. Negative Homans sign bilaterally. NEUROLOGICAL: Awake and alert. Cranial nerves II through XII intact. Motor and sensory grossly within normal limits. Five out of 5 muscle strength in all muscle groups. Normal speech. Insight and judgment is good Mood and behavior is totally appropriate Laboratory Laboratory Tests Test 05/11/17 07:45 White Blood Count 4.1 Red Blood Count 3.23 Hemoglobin 12.0 Hematocrit 34.1 Mean Corpuscular Volume 105.8 Mean Corpuscular Hemoglobin 37.0 Mean Corpuscular Hemoglobin Concent 35.0 Red Cell Distribution Width 14.6 Platelet Count 73 Mean Platelet Volume 9.0 Neutrophils (%) (Auto) 72.8 Lymphocytes (%) (Auto) 16.2 Monocytes (%) (Auto) 8.7 Eosinophils (%) (Auto) 1.7 Basophils (%) (Auto) 0.6 Neutrophils # (Auto) 3.0 Lymphocytes # (Auto) 0.7 Monocytes # (Auto) 0.4 Eosinophils # (Auto) 0.1 Basophils # (Auto) 0.0 CBC Comment AUTO DIFF Differential Comment AUTO DIFF CONFIRMED Prothrombin Time 15.7 Prothromb Time International Ratio 1.4 Activated Partial Thromboplast Time 27.7 Blood Urea Nitrogen 20 Creatinine 0.94 Random Glucose 141 Total Protein 6.3 Albumin 2.4 Calcium Level 9.4 Alkaline Phosphatase 78 Aspartate Amino Transf (AST/SGOT) 69 Alanine Aminotransferase (ALT/SGPT) 51 Total Bilirubin 2.7 Direct Bilirubin 1.1 Sodium Level 139 Potassium Level 4.0 Chloride Level 106 Carbon Dioxide Level 26.7 Anion Gap 6 Estimat Glomerular Filtration Rate 78 Indirect Bilirubin 1.6 Ammonia 179 Lipase 138 Result Diagram: 05/11/17 0745 05/11/17 0745 Imaging Last Impressions Abdomen/Pelvis CT 05/11/17 0000 Signed Impressions: Service Date/Time: Thursday, May 11, 2017 09:33 - CONCLUSION: Low-density lesion in the liver related to recent cryoablation of liver mass. Baseline cirrhotic change and stigmata of severe portal hypertension. 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 Colonic diverticulosis MD Belgica Thomas VTE Risk Assessment Caprini VTE Risk Assessment: Mod/High Risk (score >= 2) Caprini Risk Assessment Model Point Value = 1 Point Value = 2 Point Value = 3 Point Value = 5 Age 41-60 Minor surgery BMI > 25 kg/m2 Swollen legs Varicose veins or History of unexplained or recurrent spontaneous Oral contraceptives or hormone replacement Sepsis (< 1 month) Serious lung disease, including pneumonia (< 1 month) Abnormal pulmonary function Acute myocardial infarction Congestive heart failure (< 1 month) History of inflammatory bowel disease Medical patient at bed rest Age 61-74 Arthroscopic surgery Major open surgery (> 45 min) Laparoscopic surgery (> 45 min) Malignancy Confined to bed (> 72 hours) Immobilizing plaster cast Central venous access Age >= 75 History of VTE Family history of VTE Factor V Leiden Prothrombin [id number] Lupus anticoagulant Anticardiolipin antibodies Elevated serum homocysteine Heparin-induced thrombocytopenia Other congenital or acquired thrombophilia Stroke (< 1 month) Elective arthroplasty Hip, pelvis, or leg fracture Acute spinal cord injury (< 1 month) Prophylaxis Regimen Total Risk Factor Score Risk Level Prophylaxis Regimen 0-1 Low Early ambulation 2 Moderate Order ONE of the following: *Sequential Compression Device (SCD) *Heparin 5000 units SQ BID 3-4 Higher Order ONE of the following medications: *Heparin 5000 units SQ TID *Enoxaparin/Lovenox 40 mg SQ daily (WT < 150 kg, CrCl > 30 mL/min) *Enoxaparin/Lovenox 30 mg SQ daily (WT < 150 kg, CrCl > 10-29 mL/min) *Enoxaparin/Lovenox 30 mg SQ BID (WT < 150 kg, CrCl > 30 mL/min) AND/OR *Sequential Compression Device (SCD) 5 or more Highest Order ONE of the following medications: *Heparin 5000 units SQ TID (Preferred with Epidurals) *Enoxaparin/Lovenox 40 mg SQ daily (WT < 150 kg, CrCl > 30 mL/min) *Enoxaparin/Lovenox 30 mg SQ daily (WT < 150 kg, CrCl > 10-29 mL/min) *Enoxaparin/Lovenox 30 mg SQ BID (WT < 150 kg, CrCl > 30 mL/min) AND *Sequential Compression Device (SCD) Assessment and Plan Problem List: (1) Chronic thrombocytopenia Status: Chronic (2) Liver mass ICD Code: R16.0 - Hepatomegaly, not elsewhere classified Status: Acute (3) GI bleed ICD Code: K92.2 - GI bleed Status: Acute (4) HTN (hypertension) ICD Code: I10 - HTN (hypertension) Status: Acute (5) Abdominal pain ICD Code: R10.9 - Abdominal pain Status: Acute (6) Anemia due to acute blood loss ICD Code: D62 - Anemia due to acute blood loss Status: Acute (7) Hypothyroidism ICD Code: E03.9 - Hypothyroidism Status: Acute (8) Hemochromatosis ICD Code: E83.119 - Hemochromatosis Status: Acute (9) Diverticulitis ICD Code: K57.92 - Diverticulitis Status: Chronic Assessment and Plan Patient 76-year-old male with history of liver cirrhosis and hepatocellular carcinoma and hematochromatosis presented with the black stools and spitting up blood Has elevated ammonia level at 179 but is awake alert oriented talkative and cooperative and oriented 3 Has elevated bilirubin and AST Has CAT scan of the abdomen showed low density lesions in the liver also showed nonocclusive superior mesenteric venous and portal venous thrombosis Possible GI bleed with heme positive stool Consult GI. Will continue on lactulose will add rifaximin We'll get a.m. labs Cirrhosis by history and elevated ammonia level Has thrombocytopenia suspect secondary to cirrhosis has coagulopathy suspect secondary to cirrhosis and or hepatocellular disease Chronic hypothyroidism continue on Synthroid BPH continue on all medications Consult gastroenterology Mild anemia with heme positive stool rule out GI bleeding with history of varices Continue on PPI continue on lactulose continue on home medications and pain control as needed Follow throughout the admission frenular issues that may arise Code Status Full code Discussed Condition With Discussed with patient and RN and emergency room physician Physician Certification 2 Midnight Certification Type: Admission for Inpatient Services Order for Inpatient Services The services are ordered in accordance with Medicare regulations or non- Medicare payer requirements, as applicable. In the case of services not specified as inpatient-only, they are appropriately provided as inpatient services in accordance with the 2-midnight benchmark. Estimated LOS (days): 3 3 days is the estimated time the patient will need to remain in the hospital, assuming treatment plan goals are met and no additional complications. Post-Hospital Plan: Not yet determined John Hicks DO May 11, 2017 12:50
[2017-05-11 13:06] LABS: BLOOD, URINE NEG (NEG); COMMENT (UR) CULT NOT INDICATED; CULTURE IF INDICATED CULT NOT INDICATED; GLUCOSE,URINE NEG (NEG); KETONE, URINE NEG (NEG); MUCUS URINE FEW /lpf (OCC); NITRITE,URINE NEG (NEG); PH, URINE 7.5 (5.0-8.5); SQUAMOUS EPITHELIAL CELL URINE <1 /hpf (0-5); URINE COLOR YELLOW (YELLW/STRAW)
[2017-05-11] MEDS: ONDANSETRON HCL 4 MG/2 ML VIAL IVP PRN ×2 (14:51→23:19)
[2017-05-11] MEDS ORDERED: OCTREOTIDE INJ 500 MCG in SODIUM CHLORID 0.9% 500 ML INJ 499.5 ML IV SCH (16:15)
[2017-05-11] MEDS ORDERED: OCTREOTIDE INJ 50 MCG/ML AMP IV PUSH ONE ×2 (16:15→16:30)
[2017-05-11] MEDS: OCTREOTIDE INJ 500 MCG in SODIUM CHLORID 0.9% 500 ML INJ 499.5 ML IV SCH (17:25)
[2017-05-11] MEDS: LACTULOSE SYRUP 20 GM/30 ML CUP PO SCH ×3 (17:26→23:16)
--- NOTE | 2017-05-11 18:59 | MB ---
cc: LEONIDTITOGENNY DATE OF CONSULTATION 05/11/2017 REASON FOR CONSULTATION Evaluation of melena rule out upper GI bleeding source. History of cirrhosis, hepatocellular cancer. HISTORY OF PRESENT ILLNESS A pleasant 76-year-old male who has a past history of hepatocellular carcinoma, underlying hemochromatosis with cirrhosis. He has been followed by the [place] transplant service as he was evaluated there for transfer but he was deemed a poor surgical candidate. Therefore his transplantation will not be performed. 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 Mora in January of 2016. He did not follow up with us since that time. He has been followed by Dr. Jung Henriquez and he has received cryotherapy for the hepatocellular carcinoma. Last procedure was 2-1/2 months ago. He presents to emergency room with dark melanotic-like stools. For the past two or three days he has been having nausea, some dry heaves, feeling somewhat bloated. CT scan revealed changes from his cryo therapeutic intervention. There is a low-density liver lesion noted as well. He has stigmata of portal hypertension and cirrhotic changes. The patient has been complaining of nausea as stated above. He also has "spit up small amounts of blood-tinged sputum". He apparently has been taking a beta-jc at home prophylactically. His hemoglobin at presentation has been 12 grams. He denies any syncopal episodes. We were asked to evaluate him further at this time. PAST MEDICAL HISTORY His past history as mentioned again he has a history of: 1. Hypertension. 2. Hypothyroidism. 3. Previous history of upper GI bleed. MEDICATIONS Include: 1. Multivitamin. 2. Teroazsin. 3. Protonix. 4. Lisinopril. 5. Levothyroxine. His current medications include: 1. Lactulose. 2. Pantoprazole. 3. Xifaxin. 4. Ondansetron. 5. Morphine sulfate. 6. Tramadol. REVIEW OF SYSTEMS The 10 point review of systems as stated above. FAMILY HISTORY Noncontributory. SOCIAL HISTORY Denies alcohol use or tobacco use. ALLERGIES None. PHYSICAL EXAMINATION GENERAL: Well-developed male, alert and oriented times three in no acute distress. VITAL SIGNS: Stable. HEENT: Exam is unremarkable. NECK: Supple. CARDIOVASCULAR: S1-S2 regular rhythm. CHEST: Clear. ABDOMEN: The abdomen is soft, slightly tympanic. Bowel sounds are present. No masses or organomegaly. EXTREMITIES: Without clubbing, cyanosis or edema. RECTAL: Was deferred. IMPRESSION 1. Melena rule out upper GI bleeding source. 2. Trace amount of blood tinged sputum. 3. History of cirrhosis, portal hypertension, varices. 4. History of hepatocellular carcinoma. The patient is not a candidate for transplantation. 5. Nausea. PLAN I have added IV octreotide. We will proceed with EGD in the morning for reevaluation and to evaluate his nausea. The procedure, risks and benefits of endoscopy were discussed including risk of bleeding, infection, perforation risk and anesthesia. If esophageal varices are encountered we could consider banding those in the cardia. Will need further attention if needed by a TIPS procedure in the future. Would continue to monitor the H&H closely. The patient has been started on IV octreotide as well. Thank you for this consult. MD GLADIS Goff/MATT /4:25 PM /6:22 PM
[2017-05-11] MEDS ORDERED: PROPOFOL 200 MG/20 ML AMP IV PUSH ONE (20:40)
[2017-05-11] MEDS ORDERED: DO NOT ADM ANY ANTICOAGULANT DRUGS PRN (20:43)
[2017-05-11] MEDS ORDERED: *morphine SULFATE 8 MG/ML PERIprocedure ONLY ONE (20:54)
[2017-05-11] MEDS: SODIUM CHLORIDE 0.9% FLUSH 10 ML FLUSH IV FLUSH SCH (21:00)
[2017-05-11] MEDS: DOCUSATE SODIUM 50 MG/SENNA 8.6 MG TAB PO SCH (21:00)
[2017-05-11] MEDS ORDERED: SODIUM CHLORIDE 0.9% FLUSH 10 ML FLUSH IV FLUSH SCH ×2 (21:00)
[2017-05-11] MEDS ORDERED: PANTOPRAZOLE SODIUM 40 MG VIAL IV SCH (21:00)
[2017-05-11] MEDS ORDERED: PHYTONADIONE 10 MG/ML VIAL SQ ONE (21:00)
[2017-05-11] MEDS: TERAZOSIN HCL 5 MG CAP PO SCH (21:00)
[2017-05-11] MEDS: RIFAXIMIN 550 MG TAB PO SCH (21:00)
[2017-05-11 22:08] LABS: HEMATOCRIT 32.2 % (39.0-51.0); MEAN CELL VOLUME 106.9 FL (80.0-100.0); MEAN CORPUSCULAR HEMOGLOBIN 36.6 PG (27.0-34.0); MEAN CORPUSCULAR HGB CONC 34.3 % (32.0-36.0); PLATELET COUNT 104 TH/MM3 (150-450); RED BLOOD COUNT 3.01 MIL/MM3 (4.50-5.90); RED CELL DISTRIBUTION WIDTH 14.9 % (11.6-17.2); REVIEW FLAG FINAL; WHITE BLOOD COUNT 8.5 TH/MM3 (4.0-11.0)
--- NOTE | 2017-05-11 22:21 | HHI.PR ---
Addendum to Inpatient Note Addendum Reason: Additional Documentation Additional Information We were called by patient's nurse because patient's was vomiting coffee-ground color vomit. Patient returned back from EGD this evening. Patient has NG tube which was placed in the OR. Came to see patient at the bedside. Chart reviewed. Patient is awake, alert, oriented. However looks critically ill and pale. Patient reports nausea. Denies abdominal pain. NG tube is on low and is admitted suction with minimal coffee-ground, blood coming out which is just within the tube and not in the canister. Nursing staff showed me that around and bed sheets which where stained with coffee-ground color vomitus prior to my arrival. Family at the bedside also reports that patient was having clots when he vomited. On exam, patient is tachycardic with heart rate around 100. Bilateral decreased air entry at the bases. No significant jacqueline rales. Equal air entry. Abdomen is distended. Soft. Mild tenderness diffusely. No suprapubic distention. Bilateral lower extremityno significant edema. No calf asymmetry. Neurology: Awake, alert, oriented. Looks to be quite weak and frail. Grossly normal motor exam. Impression: Upper GI bleedlikely from variceal bleed. Patient with significant upper GI bleed- status post EGD today which revealed varices. Tachycardia- secondary to acute blood loss. Possible early hemorrhagic shock. CoagulopathyINR of 1.4 Elevated ammonia level with mentation preserved. Thrombocytopenia Liver cirrhosis Plan: Continue octreotide drip. Start patient back on Protonix IV drip. Stat hemoglobin hematocrit and every 6 hours. We need blood transfusion if hypotensive or remains to be tachycardic. Transfer patient to ICU stat. Inform patient's GI doctor stat. Possible if patient continues to bleed, might need repeat pending. Discontinue all sedative medications. Patient is cirrhotic patient with high risk for hepatorenal syndrome/hepatic encephalopathy. Continue lactulose. Vitamin K 10 mg subcutaneous daily, first dose now. Certified Alcohol Drug Counselor consult for critical care management. DVT prophylaxiswith SCD. critical care time 35min Jeremy Myles MD May 11, 2017 22:21
--- NOTE | 2017-05-11 22:42 | RADRPT ---
EXAM DATE/TIME: 05/11/2017 22:06 [place] COMPARISON: No previous studies available for comparison. INDICATIONS : Confirm NG tube placement. Nausea, dark stools, history of gastrointestinal bleeding. MEDICAL HISTORY : Cerebrovascular disease. Hypertension Liver cancer. SURGICAL HISTORY : Cryoablation of liver. ENCOUNTER: Subsequent ACUITY: 1 day PAIN SCORE: Non-responsive. LOCATION: Abdomen. FINDINGS: NG tip in stomach. Residual contrast in bladder. Mild ileus. Stomach distended. No free air. No acute bony abnormalities. CONCLUSION: 1. NG tube in stomach. Mild ileus. Distended stomach. Contrast in bladder. Shaun Moore MD on May 11, 2017 at 22:39 Board Certified Radiologist. This report was verified electronically.
[2017-05-11] MEDS: LEVOTHYROXINE SODIUM 88 MCG TAB PO SCH (23:16)
[2017-05-11] MEDS: PANTOPRAZOLE INJ 80 MG in SODIUM CHLORIDE 0.9% INJ 100 ML IV SCH (23:31)
[2017-05-12] VITALS (13 sets, daily range): BP systolic 100–130; BP diastolic 58–81; PULSE 87–105; RESP 13–24; TEMP 97.7–98.8; O2SAT 92–96
[2017-05-12 02:20] LABS: HEMATOCRIT 30.7 % (39.0-51.0); MEAN CELL VOLUME 107.6 FL (80.0-100.0); MEAN CORPUSCULAR HEMOGLOBIN 37.5 PG (27.0-34.0); MEAN CORPUSCULAR HGB CONC 34.8 % (32.0-36.0); PLATELET COUNT 95 TH/MM3 (150-450); RED BLOOD COUNT 2.86 MIL/MM3 (4.50-5.90); RED CELL DISTRIBUTION WIDTH 15.3 % (11.6-17.2); WHITE BLOOD COUNT 9.8 TH/MM3 (4.0-11.0)
[2017-05-12 02:21] LABS: REVIEW FLAG FINAL
[2017-05-12] MEDS: CHLORHEXIDINE GLUCONATE 2 % 1 PACK (2 CLOTHS)(taper/protocol) TOPICAL SCH (03:14)
[2017-05-12] MEDS: OCTREOTIDE INJ 500 MCG in SODIUM CHLORID 0.9% 500 ML INJ 499.5 ML IV SCH ×3 (03:14→23:43)
[2017-05-12] MEDS ORDERED: CHLORHEXIDINE GLUCONATE 2 % 1 PACK (2 CLOTHS)(extra cloths) TOPICAL PRN (03:15)
--- NOTE | 2017-05-12 03:38 | PD.CONS ---
[facility] Service Critical Care Medicine Consult Requested By Primary Care Physician Non-Staff History of Present Illness 76-year-old very pleasant gentleman with history of hepatocellular carcinoma, underlying hemochromatosis with cirrhosis. He has been followed by the [facility] transplant service as he was evaluated there for the liver transplant, however was considered as a poor surgical candidate and his transplantation will not be performed. He also has a past medical history of upper GI bleed, BPH and now presents with complaints of black tarry stool for last 2 days. He states he has been nauseous but not vomiting however did spit up a very small amount of red blood today. He complains of generalized abdominal pain for 2 days. Denies any fever, chest pain, sob, focal weakness or numbness. He follows with Dr. Henriquez and had MRI abdomen 04/15/17 that showed 5x3.3x3.4cm lesion in liver. He has not had follow up with GI after GI bleed in 2013. Patient was admitted to medical surgical floor however late last night he developed nausea vomiting of coffee-ground emesis and was transferred to ICU. Review of Systems Constitutional: COMPLAINS OF: Change in appetite, DENIES: Diaphoretic episodes , Fatigue, Fever, Weight gain, Weight loss, Chills, Dizziness, Night Sweats Endocrine: DENIES: Heat/cold intolerance, Polydipsia, Polyuria, Polyphagia Eyes: DENIES: Blurred vision, Diplopia, Eye inflammation, Eye pain, Vision loss , Photosensitivity, Double Vision Ears, nose, mouth, throat: DENIES: Tinnitus, Hearing loss, Vertigo, Nasal discharge, Oral lesions, Throat pain, Hoarseness, Ear Pain, Running Nose, Epistaxis, Sinus Pain, Toothache, Odynophagia Respiratory: DENIES: Apneas, Cough, Snoring, Wheezing, Hemoptysis, Sputum production, Shortness of breath Cardiovascular: DENIES: Chest pain, Palpitations, Syncope, Dyspnea on Exertion , PND, Lower Extremity Edema, Orthopnea, Claudication Gastrointestinal: COMPLAINS OF: Abdominal pain, Black stools, Nausea, DENIES: Bloody stools, Constipation, Diarrhea, Vomiting, Difficulty Swallowing, Anorexia Genitourinary: DENIES: Sexual dysfunction, Urinary frequency, Urinary incontinence, Urgency, Hematuria, Dysuria, Nocturia, Penile Discharge, Testicular Pain, Testicular Swelling Musculoskeletal: DENIES: Joint pain, Muscle aches, Stiffness, Joint Swelling, Back pain, Neck pain Integumentary: DENIES: Abnormal pigmentation, Nail changes, Pruritus, Rash Hematologic/lymphatic: DENIES: Bruising, Lymphadenopathy Immunologic/allergic: DENIES: Eczema, Urticaria Neurologic: DENIES: Abnormal gait, Headache, Localized weakness, Paresthesias, Seizures, Speech Problems, Tremor, Poor Balance Psychiatric: DENIES: Anxiety, Confusion, Mood changes, Depression, Hallucinations, Agitation, Suicidal Ideation, Homicidal Ideation, Delusions Past Family Social History Allergies: Coded Allergies: codeine (Unverified Allergy, Severe, 05/11/17) AIRWAY ISSUE 01/11/2017 - Patient denies allergy; states it is his 's allergy. ferrous fumarate (Unverified Allergy, Severe, holds iron in blood, 05/11/17) not able to process iron efficiently ferrous sulfate (Unverified Allergy, Severe, holds iron in blood, 05/11/17) not able to process iron efficiently ferumoxytol (Unverified Allergy, Severe, holds iron in blood, 05/11/17) not able to process iron efficiently iron (Unverified Allergy, Severe, holds iron in blood, 05/11/17) not able to process iron efficiently multivitamin infusion, adult no.4 with vitamin K (Unverified Allergy, Severe, holds iron in blood, 05/11/17) not able to process iron efficiently multivitamin with iron,other minerals (Unverified Allergy, Severe, holds iron in blood, 05/11/17) not able to process iron efficiently Past Medical History Hepatocellular carcinoma Hemochromatosis Cirrhosis History of upper GI bleed BPH Hypertension Hypothyroidism GERD Past Surgical History Bilateral knee surgeries Reported Medications Reported Meds & Active Scripts Active Reported Multiple Vitamin 1 Tab 1 Tab PO DAILY Terazosin (Terazosin HCl) 5 Mg Cap 5 Mg PO HS Protonix (Pantoprazole Sodium) 40 Mg Tab 40 Mg PO DAILY Lisinopril 20 Mg Tab 20 Mg PO DAILY Levothyroxine (Levothyroxine Sodium) 88 Mcg Tab 88 Mcg PO DAILY D 1000 (Cholecalciferol) 1,000 Unit Tab 4,000 PO DAILY Active Ordered Medications Current Medications Medications (Trade) Dose Ordered Sig/Efren Route PRN Reason Start Time Stop Time Status Last Admin Dose Admin Sodium Chloride (NS Flush) 2 ml UNSCH PRN IV FLUSH FLUSH AFTER USING IV ACCESS 05/11/17 11:15 Sodium Chloride (NS Flush) 2 ml BID IV FLUSH 05/11/17 21:00 05/11/17 21:00 Lactulose (Lactulose Liq) 30 ml Q6H PO 05/11/17 18:00 05/11/17 23:16 Rifaximin (Xifaxan) 550 mg BID PO 05/11/17 21:00 Thiamine HCl (Vitamin B1) 100 mg DAILY PO 05/12/17 09:00 Acetaminophen (Tylenol) 650 mg Q4H PRN PO TEMP > 100.4 05/11/17 11:15 Ondansetron HCl (Zofran Inj) 4 mg Q6H PRN IVP NAUSEA OR VOMITING 05/11/17 11:15 05/11/17 23:19 Acetaminophen (Tylenol) 650 mg Q6H PRN PO PAIN SCALE 1 TO 2 05/11/17 11:15 Naloxone HCl (Narcan Inj) 0.4 mg UNSCH PRN IV SEE LABEL COMMENTS 05/11/17 11:15 Senna/Docusate Sodium (Deana-Colace) 1 tab BID PO 05/11/17 21:00 Magnesium Hydroxide (Milk Of Magnesia Liq) 30 ml Q12H PRN PO MILD - MODERATE CONSTIPATION 05/11/17 11:15 Lactulose (Lactulose Liq) 30 ml DAILY PRN PO SEVERE CONSITIPATION 05/11/17 11:15 Levothyroxine Sodium (Synthroid) 88 mcg DAILY@0600 PO 05/12/17 06:00 Lisinopril (Prinivil) 20 mg DAILY PO 05/12/17 09:00 Terazosin HCl (Hytrin) 5 mg HS PO 05/11/17 21:00 Multivitamins (Theragran) 1 tab DAILY PO 05/12/17 09:00 Octreotide Acetate 500 mcg/ Sodium Chloride 500 ml @ 50 mls/hr Q10H IV 05/11/17 17:00 05/12/17 03:14 Metoclopramide HCl (Reglan Inj) 10 mg TID IV 05/12/17 09:00 Miscellaneous Information ALL NURSING DEPARTME... UNSCH PRN .XX SEE LABEL COMMENTS 05/11/17 20:43 05/12/17 20:42 Pantoprazole Sodium 80 mg/ Sodium Chloride 100 ml @ 10 mls/hr Q10H IV 05/11/17 22:56 05/11/17 23:31 Phytonadione (Vitamin K Inj) 10 mg DAILY SQ 05/12/17 09:00 Miscellaneous Information Patient in critical care unit? Ass... [id number] .XX 05/12/17 03:15 05/12/17 03:14 Chlorhexidine Gluconate (Chlorhexidine 2% Cloth) 3 pack DAILY@04 TOPICAL 05/12/17 04:00 05/16/17 04:01 05/12/17 03:14 Chlorhexidine Gluconate (Chlorhexidine 2% Cloth) 3 pack UNSCH PRN TOPICAL HYGIENIC CARE 05/12/17 03:15 05/17/17 03:09 Family History No family history of early coronary artery disease, liver disease or malignancy Positive for hypertension Social History No recent alcohol tobacco or illicit drug abuse Physical Exam Vital Signs Vital Signs Date Time Temp Pulse Resp B/P (MAP) Pulse Ox O2 Delivery O2 Flow Rate FiO2 05/12/17 02:00 104 05/12/17 00:00 100 05/12/17 00:00 98.0 100 13 100/81 (87) 05/11/17 22:46 98.6 103 20 120/78 (92) 98 05/11/17 21:00 108 10 140/79 (99) 95 Simple Mask 8 05/11/17 20:45 111 13 135/73 (93) 96 Simple Mask 8 05/11/17 20:41 112 13 134/73 (93) 97 Simple Mask 8 05/11/17 20:37 98.0 112 13 127/70 (89) 95 Simple Mask 8 05/11/17 20:00 97.4 103 18 137/74 (95) 96 05/11/17 17:07 05/11/17 16:10 98.3 103 18 143/78 (99) 96 05/11/17 14:53 101 18 124/71 (88) 96 Room Air 05/11/17 11:41 95 21 05/11/17 07:37 18 05/11/17 07:31 96 18 136/69 (91) 97 05/11/17 07:20 98.3 102 24 137/69 (91) 92 Room Air Physical Exam GENERAL: Well-nourished, well-developed patient. SKIN: Warm and dry. HEAD: Normocephalic. EYES: No scleral icterus. No injection or drainage. NECK: Supple, trachea midline. No JVD or lymphadenopathy. CARDIOVASCULAR: Regular rate and rhythm without murmurs, gallops, or rubs. RESPIRATORY: Breath sounds equal bilaterally. No accessory muscle use. GASTROINTESTINAL: Abdomen soft, non-tender, nondistended. MUSCULOSKELETAL: No cyanosis, or edema. BACK: Nontender without obvious deformity. NEURO EXAM: GCS: M 6 V 5 E 4 Mental Status: The patient is alert and oriented to person, place, and time with normal speech. Cranial Nerves: Pupils are round, reactive to light. Extraocular movements are intact without ptosis. Hearing is normal bilaterally. Voice is normal. Tongue protrudes midline and moves symmetrically. Reflexes: Biceps, patellar, and Achilles are 2/4 bilaterally. No clonus. Laboratory Laboratory Tests Test 05/11/17 07:45 05/11/17 12:35 05/11/17 21:25 05/11/17 22:45 White Blood Count 4.1 8.5 Red Blood Count 3.23 3.01 Hemoglobin 12.0 11.0 Hematocrit 34.1 32.2 Mean Corpuscular Volume 105.8 106.9 Mean Corpuscular Hemoglobin 37.0 36.6 Mean Corpuscular Hemoglobin Concent 35.0 34.3 Red Cell Distribution Width 14.6 14.9 Platelet Count 73 104 Mean Platelet Volume 9.0 8.6 Neutrophils (%) (Auto) 72.8 Lymphocytes (%) (Auto) 16.2 Monocytes (%) (Auto) 8.7 Eosinophils (%) (Auto) 1.7 Basophils (%) (Auto) 0.6 Neutrophils # (Auto) 3.0 Lymphocytes # (Auto) 0.7 Monocytes # (Auto) 0.4 Eosinophils # (Auto) 0.1 Basophils # (Auto) 0.0 CBC Comment AUTO DIFF Differential Comment AUTO DIFF CONFIRMED Prothrombin Time 15.7 Prothromb Time International Ratio 1.4 Activated Partial Thromboplast Time 27.7 Blood Urea Nitrogen 20 Creatinine 0.94 Random Glucose 141 Total Protein 6.3 Albumin 2.4 Calcium Level 9.4 Alkaline Phosphatase 78 Aspartate Amino Transf (AST/SGOT) 69 Alanine Aminotransferase (ALT/SGPT) 51 Total Bilirubin 2.7 Direct Bilirubin 1.1 Sodium Level 139 Potassium Level 4.0 Chloride Level 106 Carbon Dioxide Level 26.7 Anion Gap 6 Estimat Glomerular Filtration Rate 78 Indirect Bilirubin 1.6 Ammonia 179 Lipase 138 Urine Color YELLOW Urine Turbidity CLEAR Urine pH 7.5 Urine Specific [place] GREATER THAN 1.050 Urine Protein TRACE Urine Glucose (UA) NEG Urine Ketones NEG Urine Occult Blood NEG Urine Nitrite NEG Urine Bilirubin NEG Urine Urobilinogen LESS THAN 2.0 Urine Leukocyte Esterase NEG Urine RBC 1 Urine WBC 2 Urine Squamous Epithelial Cells <1 Urine Amorphous Sediment RARE Urine Mucus FEW Microscopic Urinalysis Comment CULT NOT INDICATED Nasal Screen MRSA (PCR) MRSA NOT DETECTED Test 05/12/17 01:57 White Blood Count 9.8 Red Blood Count 2.86 Hemoglobin 10.7 Hematocrit 30.7 Mean Corpuscular Volume 107.6 Mean Corpuscular Hemoglobin 37.5 Mean Corpuscular Hemoglobin Concent 34.8 Red Cell Distribution Width 15.3 Platelet Count 95 Mean Platelet Volume 8.9 Result Diagram: 05/12/17 0157 05/11/17 0745 Assessment and Plan Assessment and Plan Coffee-ground emesis - History of GI bleed - Hemochromatosis and liver cirrhosis - Gastroenterology following - Protonix drip - Octreotide drip - Series of H&H Hepatocellular carcinoma - Supportive care - Outpatient follow-up with Dr. Henriquez Hyperammonemia - With preserved mentation - Lactulose and Xifaxan when okay by mouth by GI Hypertension - Hytrin - Lisinopril Elevated INR - Due to liver failure - Vitamin K - FFP's if signs of active bleeding Hypothyroidism - Synthroid DVT GI prophylaxis - Teds SCDs - No pharmacological prophylaxis due to active GI bleed - Protonix drip Critical Care: The total critical care time was 35 minutes. Time to perform other separately billable procedures was not included in the critical care time. Maykel Keller MD May 12, 2017 3:38 am
[2017-05-12] MEDS: LACTULOSE SYRUP 20 GM/30 ML CUP PO SCH ×3 (04:27→17:19)
[2017-05-12] MEDS: ONDANSETRON HCL 4 MG/2 ML VIAL IVP PRN ×3 (05:46→23:12)
[2017-05-12 06:03] LABS: AUTOMATED NEUTROPHIL # 8.8 TH/MM3 (1.8-7.7); BASOPHIL % 0.3 % (0.0-2.0); EOSINOPHIL % 0.3 % (0.0-4.0); HEMATOCRIT 31.1 % (39.0-51.0); HEMO FLAGS DIFF FINAL; LYMPH % 9.6 % (9.0-44.0); MEAN CELL VOLUME 107.4 FL (80.0-100.0); MEAN CORPUSCULAR HEMOGLOBIN 36.6 PG (27.0-34.0); MEAN CORPUSCULAR HGB CONC 34.1 % (32.0-36.0); MONO % 8.5 % (0.0-8.0); NEUT % 81.3 % (16.0-70.0); PLATELET COUNT 106 TH/MM3 (150-450); RED CELL DISTRIBUTION WIDTH 15.3 % (11.6-17.2); WHITE BLOOD COUNT 10.8 TH/MM3 (4.0-11.0)
[2017-05-12 06:07] LABS: INTERNATIONAL NORMALIZED RATIO 1.4 RATIO; PROTHROMBIN TIME - PATIENT 15.9 SEC (9.8-11.6)
[2017-05-12 06:43] LABS: ALKALINE PHOSPHATASE 75 U/L (45-117); ALT (GPT) 47 U/L (12-78); ANION GAP 10 MEQ/L (5-15); AST (GOT) 58 U/L (15-37); BLOOD UREA NITROGEN 39 MG/DL (7-18); CHLORIDE 107 MEQ/L (98-107); GLOMERULAR FILTRATION RATE 53 ML/MIN (>89); MAGNESIUM 1.8 MG/DL (1.5-2.5); SODIUM (NA) 142 MEQ/L (136-145); TOTAL BILIRUBIN ADULT 3.1 MG/DL (0.2-1.0)
[2017-05-12] MEDS: PANTOPRAZOLE INJ 80 MG in SODIUM CHLORIDE 0.9% INJ 100 ML IV SCH ×2 (08:11→17:33)
[2017-05-12] MEDS: METOCLOPRAMIDE HCL 10 MG/2 ML VIAL IV SCH ×3 (08:12→17:19)
[2017-05-12] MEDS: SODIUM CHLORIDE 0.9% FLUSH 10 ML FLUSH IV FLUSH SCH ×2 (08:12→20:09)
[2017-05-12] MEDS: DOCUSATE SODIUM 50 MG/SENNA 8.6 MG TAB PO SCH ×2 (08:12→20:25)
[2017-05-12] MEDS: MULTIVITAMIN TAB PO SCH (08:13)
[2017-05-12] MEDS: RIFAXIMIN 550 MG TAB PO SCH ×2 (08:13→20:25)
[2017-05-12] MEDS: THIAMINE HCL 100 MG TAB PO SCH (08:13)
[2017-05-12] MEDS: LISINOPRIL 20 MG TAB PO SCH (08:13)
[2017-05-12] MEDS: PHYTONADIONE 10 MG/ML VIAL SQ SCH (08:13)
[2017-05-12] MEDS ORDERED: PANTOPRAZOLE SOD 40 MG DELAYED RELEASE TAB PO SCH (09:00)
[2017-05-12] MEDS: SODIUM CHLOR 0.9% 1000 ML INJ 1,000 ML IV SCH ×2 (09:26→20:09)
--- NOTE | 2017-05-12 10:19 | MR ---
cc: GENNY JAQUEZ DATE: 05/11/2017 07/24/1941 PROCEDURE Upper endoscopy. INDICATION FOR PROCEDURE The patient presented with hematemesis, melena, rule out upper GI bleeding source. PHOTOGRAPHS AND BIOPSIES Photographs were taken. No biopsy. PREMEDICATIONS Administered by anesthesiology. MONITORING Monitoring was accomplished with pulse oximeter, EKG, blood pressure monitor. The patient was intubated to protect the airway. PROCEDURE NOTE After informed consent was obtained and the procedure, risks and benefits were explained including the risks of bleeding, sepsis, perforation, risks of anesthesia, the patient was placed in left lateral position. The video endoscope was inserted per oral route. The esophagus was carefully inspected. The esophagus failed to reveal any esophageal varices as the patient has known cirrhosis due to hemochromatosis. There was blood maroon colored scattered in the esophagus. The EG junction was patent. 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 As the scope was passed in the stomach there was a large amount of clot material in the proximal stomach negating a complete exam. Suctioning was not possible as the clots kept clogging the scope. I did retroflex the scope, I could see a portion of the cardia and fundus. It was difficult to appreciate any active bleeding source of course, there was a question of whether there was some varices near the cardia but once again this was not completely visualized, photographs were taken. Blood was scattered throughout the stomach. I did not see any active bleeding source per se. The antrum was unremarkable. The pylorus was patent. Duodenal bulb was unremarkable and the first and second portion of the duodenum were unremarkable as well for any active bleeding source. After multiple attempts to try and remove some of the clots, this was unsuccessful and the scope was gradually withdrawn and an NG tube was placed and maroon colored blood was suctioned, about 200 ccs. The patient was extubated with stable vital signs. He tolerated this fairly well. IMPRESSION This examination revealed a large amount of old blood, maroon blood in the stomach, especially in the proximal portion which precluded a complete exam. I did not identify the bleeding source, although it is suspected the patient may have bled from a proximal varix in the stomach. The esophagus itself failed to reveal any active bleeding source or varices. PLAN We will continue IV octreotide. Monitor the H&H and transfuse as needed. We could consider a second look endoscopy at some point. We will start him on Reglan therapy to help clear the stomach of its contents. MD GLADIS Goff/KALE[place] /8:26 PM /9:49 AM
--- NOTE | 2017-05-12 10:41 | HHI.GIFU ---
Subjective Remarks lethargic but arousable NGT Dark blood total 500cc x 18hr hb 10.6 Objective Vitals I&O Vital Signs Date Time Temp Pulse Resp B/P (MAP) Pulse Ox O2 Delivery O2 Flow Rate FiO2 05/12/17 06:00 105 05/12/17 04:00 92 05/12/17 04:00 97.9 92 22 117/72 (87) 93 05/12/17 02:00 104 05/12/17 00:00 100 05/12/17 00:00 98.0 100 13 100/81 (87) 05/11/17 22:46 98.6 103 20 120/78 (92) 98 05/11/17 21:00 108 10 140/79 (99) 95 Simple Mask 8 05/11/17 20:45 111 13 135/73 (93) 96 Simple Mask 8 05/11/17 20:41 112 13 134/73 (93) 97 Simple Mask 8 05/11/17 20:37 98.0 112 13 127/70 (89) 95 Simple Mask 8 05/11/17 20:00 97.4 103 18 137/74 (95) 96 05/11/17 17:07 05/11/17 16:10 98.3 103 18 143/78 (99) 96 05/11/17 14:53 101 18 124/71 (88) 96 Room Air 05/11/17 11:41 95 21 I/O 05/11/17 05/11/17 05/11/17 05/12/17 05/12/17 05/12/17 06:59 14:59 22:59 06:59 14:59 22:59 Intake Total 35 ml 780 ml 0 ml 48 ml Output Total 700 ml Balance 35 ml 780 ml -700 ml 48 ml Intake Oral 480 ml 0 ml IV Total 35 ml 100 ml 48 ml Other 200 ml Output Urine Total 600 ml Gastric Drainage Total 100 ml # Voids 2 # Bowel Movements 0 0 Laboratory Laboratory Tests Test 05/11/17 12:35 05/11/17 21:25 05/11/17 22:45 05/12/17 01:57 Urine Color YELLOW Urine Turbidity CLEAR Urine pH 7.5 Urine Specific [place] GREATER THAN 1.050 Urine Protein TRACE Urine Glucose (UA) NEG Urine Ketones NEG Urine Occult Blood NEG Urine Nitrite NEG Urine Bilirubin NEG Urine Urobilinogen LESS THAN 2.0 Urine Leukocyte Esterase NEG Urine RBC 1 Urine WBC 2 Urine Squamous Epithelial Cells <1 Urine Amorphous Sediment RARE Urine Mucus FEW Microscopic Urinalysis Comment CULT NOT INDICATED White Blood Count 8.5 9.8 Red Blood Count 3.01 2.86 Hemoglobin 11.0 10.7 Hematocrit 32.2 30.7 Mean Corpuscular Volume 106.9 107.6 Mean Corpuscular Hemoglobin 36.6 37.5 Mean Corpuscular Hemoglobin Concent 34.3 34.8 Red Cell Distribution Width 14.9 15.3 Platelet Count 104 95 Mean Platelet Volume 8.6 8.9 Nasal Screen MRSA (PCR) MRSA NOT DETECTED Test 05/12/17 05:38 White Blood Count 10.8 Red Blood Count 2.90 Hemoglobin 10.6 Hematocrit 31.1 Mean Corpuscular Volume 107.4 Mean Corpuscular Hemoglobin 36.6 Mean Corpuscular Hemoglobin Concent 34.1 Red Cell Distribution Width 15.3 Platelet Count 106 Mean Platelet Volume 8.6 Neutrophils (%) (Auto) 81.3 Lymphocytes (%) (Auto) 9.6 Monocytes (%) (Auto) 8.5 Eosinophils (%) (Auto) 0.3 Basophils (%) (Auto) 0.3 Neutrophils # (Auto) 8.8 Lymphocytes # (Auto) 1.0 Monocytes # (Auto) 0.9 Eosinophils # (Auto) 0.0 Basophils # (Auto) 0.0 CBC Comment DIFF FINAL Differential Comment Prothrombin Time 15.9 Prothromb Time International Ratio 1.4 Blood Urea Nitrogen 39 Creatinine 1.31 Random Glucose 136 Total Protein 6.3 Albumin 2.5 Calcium Level 8.2 Phosphorus Level 4.4 Magnesium Level 1.8 Alkaline Phosphatase 75 Aspartate Amino Transf (AST/SGOT) 58 Alanine Aminotransferase (ALT/SGPT) 47 Total Bilirubin 3.1 Sodium Level 142 Potassium Level 5.0 Chloride Level 107 Carbon Dioxide Level 25.0 Anion Gap 10 Estimat Glomerular Filtration Rate 53 Ammonia 179 Free Thyroxine 1.10 Thyroid Stimulating Hormone 3rd Gen 0.585 Date/Time Source Procedure Growth Status 05/12/17 05:00 Urine Catheterized Urine Urine Culture Pending Received Physical Exam HEENT: Pupils round and reactive to light; normocephalic; atraumatic; no jaundice. Throat is clear. NECK: Neck is supple, no JVD, no lymphadenopathy. CHEST: Chest is clear to auscultation and percussion. CARDIAC: Regular rate and rhythm with no murmur gallop or rubs. ABDOMEN: Soft, nondistended, nontender; bowel sounds are present in all four quadrants. EXTREMITIES: No clubbing, cyanosis, or edema. [employer] [facility]: probable encephalopathic Assessment and Plan Assessment: (1) Encephalopathy ICD Codes: G93.40 - Encephalopathy, unspecified (2) Hemochromatosis ICD Codes: E83.119 - Hemochromatosis Status: Acute (3) GI bleed ICD Codes: K92.2 - GI bleed Status: Acute (4) Liver mass ICD Codes: R16.0 - Hepatomegaly, not elsewhere classified Status: Acute Plan Discussed case w at bedside ....cont w octreotide Gi Bleed may be 2 to gastric varix...appears stable at present will cont w lactulose as well Ammonia level noted elevated...prognosis gaurded for now but he could decompensate rapidly as well. Second look EGD planned for tomorrow as well. Benedict Davenport MD May 12, 2017 10:41
[2017-05-12 15:22] LABS: HEMATOCRIT 30.3 % (39.0-51.0); MEAN CELL VOLUME 109.2 FL (80.0-100.0); MEAN CORPUSCULAR HGB CONC 32.9 % (32.0-36.0); PLATELET COUNT 109 TH/MM3 (150-450); RED BLOOD COUNT 2.78 MIL/MM3 (4.50-5.90); RED CELL DISTRIBUTION WIDTH 15.8 % (11.6-17.2); REVIEW FLAG FINAL; WHITE BLOOD COUNT 11.8 TH/MM3 (4.0-11.0)
[2017-05-12] MEDS ORDERED: PROMETHAZINE INJ 25 MG/ML VIAL IV-CENTRAL ONE (17:15)
[2017-05-12 18:54] LABS: HEMATOCRIT 29.5 % (39.0-51.0); MEAN CELL VOLUME 109.2 FL (80.0-100.0); MEAN CORPUSCULAR HEMOGLOBIN 36.1 PG (27.0-34.0); MEAN CORPUSCULAR HGB CONC 33.1 % (32.0-36.0); PLATELET COUNT 101 TH/MM3 (150-450); RED CELL DISTRIBUTION WIDTH 15.6 % (11.6-17.2); REVIEW FLAG FINAL; WHITE BLOOD COUNT 11.6 TH/MM3 (4.0-11.0)
[2017-05-12] MEDS: TERAZOSIN HCL 5 MG CAP PO SCH (20:25)
[2017-05-13] VITALS (23 sets, daily range): BP systolic 116–144; BP diastolic 58–94; PULSE 80–110; RESP 12–31; TEMP 98–98.9; O2SAT 92–98
[2017-05-13] MEDS: CHLORHEXIDINE GLUCONATE 2 % 1 PACK (2 CLOTHS)(taper/protocol) TOPICAL SCH (00:23)
[2017-05-13] MEDS: PANTOPRAZOLE INJ 80 MG in SODIUM CHLORIDE 0.9% INJ 100 ML IV SCH ×2 (00:23→17:14)
[2017-05-13] MEDS: LACTULOSE SYRUP 20 GM/30 ML CUP PO SCH ×4 (00:23→17:15)
[2017-05-13 04:36] LABS: HEMATOCRIT 26.2 % (39.0-51.0); MEAN CELL VOLUME 108.1 FL (80.0-100.0); MEAN CORPUSCULAR HEMOGLOBIN 36.8 PG (27.0-34.0); PLATELET COUNT 87 TH/MM3 (150-450); RED BLOOD COUNT 2.42 MIL/MM3 (4.50-5.90); RED CELL DISTRIBUTION WIDTH 15.2 % (11.6-17.2); WHITE BLOOD COUNT 9.1 TH/MM3 (4.0-11.0)
[2017-05-13 04:43] LABS: REVIEW FLAG FINAL
[2017-05-13 04:47] LABS: INTERNATIONAL NORMALIZED RATIO 1.4 RATIO; PROTHROMBIN TIME - PATIENT 15.5 SEC (9.8-11.6)
[2017-05-13 05:08] LABS: ALKALINE PHOSPHATASE 66 U/L (45-117); ALT (GPT) 43 U/L (12-78); ANION GAP 11 MEQ/L (5-15); AST (GOT) 52 U/L (15-37); BICARBONATE 22.5 MEQ/L (21.0-32.0); BLOOD UREA NITROGEN 55 MG/DL (7-18); CHLORIDE 105 MEQ/L (98-107); GLOMERULAR FILTRATION RATE 58 ML/MIN (>89); MAGNESIUM 1.9 MG/DL (1.5-2.5); POTASSIUM 4.3 MEQ/L (3.5-5.1); SODIUM (NA) 138 MEQ/L (136-145); TOTAL BILIRUBIN ADULT 2.8 MG/DL (0.2-1.0)
[2017-05-13] MEDS: LEVOTHYROXINE SODIUM 88 MCG TAB PO SCH (06:00)
[2017-05-13] MEDS: SODIUM CHLOR 0.9% 1000 ML INJ 1,000 ML IV SCH ×2 (08:20→17:18)
[2017-05-13] MEDS: METOCLOPRAMIDE HCL 10 MG/2 ML VIAL IV SCH ×3 (08:53→17:15)
[2017-05-13] MEDS: MULTIVITAMIN TAB PO SCH (08:54)
[2017-05-13] MEDS: THIAMINE HCL 100 MG TAB PO SCH (08:54)
[2017-05-13] MEDS: RIFAXIMIN 550 MG TAB PO SCH ×2 (08:54→21:22)
[2017-05-13] MEDS: DOCUSATE SODIUM 50 MG/SENNA 8.6 MG TAB PO SCH ×2 (08:54→21:00)
[2017-05-13] MEDS: PHYTONADIONE 10 MG/ML VIAL SQ SCH (08:54)
[2017-05-13] MEDS: SODIUM CHLORIDE 0.9% FLUSH 10 ML FLUSH IV FLUSH SCH ×2 (08:54→21:22)
[2017-05-13] MEDS: LISINOPRIL 20 MG TAB PO SCH (08:55)
[2017-05-13] MEDS: ONDANSETRON HCL 4 MG/2 ML VIAL IVP PRN (09:00)
[2017-05-13] MEDS: OCTREOTIDE INJ 500 MCG in SODIUM CHLORID 0.9% 500 ML INJ 499.5 ML IV SCH ×2 (09:52→19:00)
--- NOTE | 2017-05-13 11:04 | HHI.CCPN ---
Subjective Remarks/Hospital Course 76-year-old very pleasant gentleman with history of hepatocellular carcinoma, underlying hemochromatosis with cirrhosis. He has been followed by the [facility] transplant service as he was evaluated there for the liver transplant, however was considered as a poor surgical candidate and his transplantation will not be performed. He also has a past medical history of upper GI bleed, BPH and now presents with complaints of black tarry stool for last 2 days. He states he has been nauseous but not vomiting however did spit up a very small amount of red blood today. He complains of generalized abdominal pain for 2 days. Denies any fever, chest pain, sob, focal weakness or numbness. He follows with Dr. Henriquez and had MRI abdomen 04/15/17 that showed 5x3.3x3.4cm lesion in liver. He has not had follow up with GI after GI bleed in 2013. Patient was admitted to medical surgical floor however late last night he developed nausea vomiting of coffee-ground emesis and was transferred to ICU. Subjective: 05/13: The patient is scheduled for repeat EGD this afternoon. Hemoglobin stable. The patient continues on lactulose twice a day ammonia level decreasing. Patient continues to have persistent nausea and continues on Zofran and Reglan, received 6.25 mg IV of Phenergan last evening with resolution of symptoms. Objective Vital Signs Date Time Temp Pulse Resp B/P (MAP) Pulse Ox O2 Delivery O2 Flow Rate FiO2 05/13/17 06:00 110 05/13/17 04:00 98.3 12 116/65 (82) 92 05/12/17 21:51 Nasal Cannula 6.00 05/11/17 11:41 21 Intake and Output 05/13/17 05/13/17 05/14/17 08:00 16:00 00:00 Intake Total 317 ml Output Total 950 ml Balance -950 ml 317 ml Result Diagram: 05/13/17 0352 05/13/17 0352 Imaging Last Impressions Abdomen/Pelvis CT 05/11/17 0000 Signed Impressions: Service Date/Time: Thursday, May 11, 2017 09:33 - CONCLUSION: Low-density lesion in the liver related to recent cryoablation of liver mass. Baseline cirrhotic change and stigmata of severe portal hypertension. 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 Colonic diverticulosis Timmy Dawn MD Abdomen X-Ray 05/11/17 0000 Signed Impressions: Service Date/Time: Thursday, May 11, 2017 22:06 - CONCLUSION: 1. NG tube in stomach. Mild ileus. Distended stomach. Contrast in bladder. Shaun Moore MD Objective Remarks GENERAL: Well-nourished, well-developed patient noticeably weak SKIN: Warm and dry. HEAD: Normocephalic. EYES: No scleral icterus. No injection or drainage. NECK: Supple, trachea midline. No JVD or lymphadenopathy. CARDIOVASCULAR: Regular rate and rhythm without murmurs, gallops, or rubs. RESPIRATORY: Breath sounds equal bilaterally. No accessory muscle use. GASTROINTESTINAL: Abdomen soft, non-tender, nondistended. MUSCULOSKELETAL: No cyanosis, or edema. BACK: Nontender without obvious deformity. NEURO EXAM: GCS: M 6 V 5 E 4 Mental Status: The patient is alert and oriented to person, place, and time with normal speech. Cranial Nerves: Pupils are round, reactive to light. Extraocular movements are intact without ptosis. Hearing is normal bilaterally. Voice is normal. Tongue protrudes midline and moves symmetrically. Cranial nerves II-XII grossly intact. Motor strength 5/5 bilateral upper and lower extremities. Reflexes: Biceps, patellar, and Achilles are 2/4 bilaterally. No clonus. Urinary Catheter: Yes Assessment to: Remove A/P Assessment and Plan Coffee-ground emesis - History of GI bleed - Hemochromatosis and liver cirrhosis - Gastroenterology following - Protonix drip - Octreotide drip - Series of H&H- Hgb 8.9 Hepatocellular carcinoma - Supportive care - Outpatient follow-up with Dr. Henriquez- heme made aware of patient's admission Hyperammonemia - With preserved mentation - Lactulose and Xifaxan when okay by mouth by GI - Hypertension - Hytrin - Lisinopril Elevated INR - Due to liver failure - Vitamin K - FFP's if signs of active bleeding Hypothyroidism - Synthroid MSK: Critical illness polyneuropathy -PT evaluation and treat DVT GI prophylaxis - Teds SCDs - No pharmacological prophylaxis due to active GI bleed - Protonix infusions Dispo: Discussed with patient's and sons, and [employer] (Mellisa) at bedside. Critical Care: This patient remains critically ill with one or more organ systems which are or may become a threat to life. I have spent in excess of 35 minutes discontinuously in the care and management of this patient. This time is exclusive of procedures, and includes, but is not limited to, evaluation of the patient, review of the medical record, discussions with family, consultants, nursing staff, or respiratory therapy, and documentation in the medical record. Physician Dolores Alcantar MD May 13, 2017 11:04
[2017-05-13] MEDS ORDERED: PROPOFOL 200 MG/20 ML AMP IV ONE ×2 (12:00→13:50)
[2017-05-13] MEDS ORDERED: DO NOT ADM ANY ANTICOAGULANT DRUGS PRN (14:45)
[2017-05-13] MEDS: SUCRALFATE 1 GM/10 ML CUP PO SCH (17:15)
--- NOTE | 2017-05-13 21:21 | MR ---
cc: GENNY JAQUEZ DATE 05/13/2017 DATE OF 1940 PROCEDURE Upper endoscopy. INDICATIONS FOR PROCEDURE Patient with recent upper GI bleed, hematemesis. Upper endoscopy was limited by residual blood and clots in the proximal stomach. The patient has underlying cirrhosis. Repeat endoscopy being performed at this time to reevaluate the fundal cardial region of the stomach. MEDICATIONS Administered by anesthesiology. The patient was intubated to protect the airway. Monitoring was a constant pulse oximeter, EKG, blood pressure monitor. PROCEDURE NOTE After informed consent was obtained, the procedure, risks and benefits were explained including risks of bleeding, sepsis, perforation, perforation, risk of anesthesia. The patient placed in the left lateral position. The endoscope was inserted in the esophagus under direct visualization. The patient was intubated and an NG tube was removed. NG tube revealed clear secretions. The esophagus failed to reveal any obvious varices. 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 Scope was passed in the stomach, there was no evidence of blood, in the retroflex view multiple gastric varices were noted and rather large. One had a small area of erythema but there was no active bleeding noted on this exam. The scope was advanced to the antrum and pylorus and into the duodenum and the rest exam was unremarkable. Multiple photographs of the gastric varices were obtained. The patient tolerated the procedure well with no immediate complications noted. He was extubated quickly. 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 No active bleeding was noted at this time. I would suspect the recent bleeding was due to these varices. PLAN Will continue IV octreotide. We will start him on Nadolol 20 milligrams twice a day. Monitor the heart rate. Would consider referral and consultation to interventional radiology for consideration towards a TIPS procedure if possible. Monitor the H&Hs closely. Will start him on a liquid diet. MD GLADIS Goff/YAZMIN /1:56 PM /9:02 PM
[2017-05-13] MEDS: NADOLOL 20 MG TAB PO SCH (21:22)
[2017-05-13] MEDS: TERAZOSIN HCL 5 MG CAP PO SCH (21:22)
[2017-05-14] VITALS (9 sets, daily range): BP systolic 77–116; BP diastolic 51–59; PULSE 56–73; RESP 9–16; TEMP 97.7–99; O2SAT 89–98
[2017-05-14] MEDS: LACTULOSE SYRUP 20 GM/30 ML CUP PO SCH ×3 (00:17→12:00)
[2017-05-14] MEDS: PANTOPRAZOLE INJ 80 MG in SODIUM CHLORIDE 0.9% INJ 100 ML IV SCH ×2 (00:17→10:15)
[2017-05-14 03:57] LABS: MEAN CELL VOLUME 107.3 FL (80.0-100.0); MEAN CORPUSCULAR HEMOGLOBIN 36.6 PG (27.0-34.0); MEAN CORPUSCULAR HGB CONC 34.2 % (32.0-36.0); PLATELET COUNT 79 TH/MM3 (150-450); RED BLOOD COUNT 1.91 MIL/MM3 (4.50-5.90); RED CELL DISTRIBUTION WIDTH 14.6 % (11.6-17.2)
[2017-05-14] MEDS: CHLORHEXIDINE GLUCONATE 2 % 1 PACK (2 CLOTHS)(taper/protocol) TOPICAL SCH (04:00)
[2017-05-14 04:05] LABS: REVIEW FLAG FINAL
[2017-05-14 04:07] LABS: HEMATOCRIT 20.5 % (39.0-51.0)
[2017-05-14 04:30] LABS: BICARBONATE 28.3 MEQ/L (21.0-32.0); CALCIUM-PROTEIN CORRECTED 8.3 MG/DL (8.5-10.1); POTASSIUM 4.4 MEQ/L (3.5-5.1); TOTAL BILIRUBIN ADULT 2.4 MG/DL (0.2-1.0)
[2017-05-14] MEDS: LEVOTHYROXINE SODIUM 88 MCG TAB PO SCH (06:25)
[2017-05-14] MEDS: OCTREOTIDE INJ 500 MCG in SODIUM CHLORID 0.9% 500 ML INJ 499.5 ML IV SCH (08:44)
[2017-05-14] MEDS: SODIUM CHLORIDE 0.9% FLUSH 10 ML FLUSH IV FLUSH SCH (08:45)
[2017-05-14] MEDS: MULTIVITAMIN TAB PO SCH (08:45)
[2017-05-14] MEDS: RIFAXIMIN 550 MG TAB PO SCH (08:45)
[2017-05-14] MEDS: NADOLOL 20 MG TAB PO SCH (08:45)
[2017-05-14] MEDS: SODIUM CHLOR 0.9% 1000 ML INJ 1,000 ML IV SCH (08:45)
[2017-05-14] MEDS: THIAMINE HCL 100 MG TAB PO SCH (08:45)
[2017-05-14] MEDS: LISINOPRIL 20 MG TAB PO SCH (08:45)
[2017-05-14] MEDS: SUCRALFATE 1 GM/10 ML CUP PO SCH ×2 (08:45→12:00)
[2017-05-14] MEDS: METOCLOPRAMIDE HCL 10 MG/2 ML VIAL IV SCH ×2 (08:45→12:00)
[2017-05-14] MEDS: PHYTONADIONE 10 MG/ML VIAL SQ SCH (08:46)
[2017-05-14] MEDS: DOCUSATE SODIUM 50 MG/SENNA 8.6 MG TAB PO SCH (08:46)
--- NOTE | 2017-05-14 11:29 | HHI.GIFU ---
Subjective Remarks lethargic/ arousable feeling very tired...Hb dropped to 7 range from 10 , noted w bloody stools last evening...pt declines further blood transfusions and treatment wants to be placed w Hospice care Objective Vitals I&O Vital Signs Date Time Temp Pulse Resp B/P (MAP) Pulse Ox O2 Delivery O2 Flow Rate FiO2 05/14/17 10:00 56 05/14/17 08:00 97.9 63 9 105/59 (74) 96 05/14/17 08:00 63 05/14/17 06:12 98.5 65 16 108/58 97 05/14/17 06:00 67 05/14/17 05:57 98.0 68 16 109/59 96 05/14/17 04:00 73 05/14/17 04:00 97.7 73 14 77/51 (60) 89 05/14/17 02:00 67 05/14/17 00:00 99.0 67 10 103/57 (72) 98 05/14/17 00:00 67 05/13/17 22:00 87 05/13/17 20:00 98.9 101 15 136/65 (88) 96 05/13/17 20:00 86 05/13/17 18:00 91 31 125/94 (104) 94 05/13/17 18:00 91 05/13/17 17:30 90 15 134/67 (89) 97 05/13/17 17:00 88 05/13/17 17:00 88 21 141/66 (91) 95 05/13/17 16:30 90 16 137/68 (91) 96 05/13/17 16:00 91 05/13/17 16:00 98.3 91 26 136/67 (90) 95 05/13/17 15:30 85 14 137/64 (88) 94 05/13/17 15:17 87 30 127/61 (83) 94 05/13/17 15:17 87 05/13/17 14:40 91 12 117/59 (78) 97 05/13/17 14:15 86 12 116/56 (76) 97 Nasal Cannula 2 05/13/17 14:06 98.9 100 19 109/60 (76) 94 05/13/17 12:00 82 05/13/17 12:00 98.6 82 16 136/60 (85) 98 I/O 05/13/17 05/13/17 05/13/17 05/14/17 05/14/17 05/14/17 06:59 14:59 22:59 06:59 14:59 22:59 Intake Total 604 ml 660 ml 10 ml 254 ml Output Total 950 ml 900 ml 1200 ml Balance -950 ml -296 ml -540 ml 10 ml 254 ml Intake Oral 660 ml IV Total 454 ml Packed Cells 250 ml Blood Product IV Normal Saline Flush 10 ml 4 ml Other 150 ml Output Urine Total 750 ml 900 ml 1200 ml Gastric Drainage Total 200 ml # Voids 0 # Bowel Movements 0 5 Laboratory Laboratory Tests Test 05/13/17 12:18 05/14/17 03:51 Ammonia 89 White Blood Count 9.0 Red Blood Count 1.91 Hemoglobin 7.0 Hematocrit 20.5 Mean Corpuscular Volume 107.3 Mean Corpuscular Hemoglobin 36.6 Mean Corpuscular Hemoglobin Concent 34.2 Red Cell Distribution Width 14.6 Platelet Count 79 Mean Platelet Volume 8.1 Blood Urea Nitrogen 39 Creatinine 1.06 Random Glucose 131 Total Protein 5.0 Albumin 2.0 Calcium Level 7.2 Phosphorus Level 1.9 Magnesium Level 2.0 Alkaline Phosphatase 57 Aspartate Amino Transf (AST/SGOT) 57 Alanine Aminotransferase (ALT/SGPT) 46 Total Bilirubin 2.4 Sodium Level 141 Potassium Level 4.4 Chloride Level 107 Carbon Dioxide Level 28.3 Anion Gap 6 Estimat Glomerular Filtration Rate 68 Protein Corrected Calcium 8.3 Date/Time Source Procedure Growth Status 05/12/17 05:00 Urine Catheterized Urine Urine Culture - Final NO GROWTH IN 48 HOURS. Complete Physical Exam CHEST: Chest is clear to auscultation and percussion. CARDIAC: Regular rate and rhythm with no murmur gallop or rubs. ABDOMEN: Soft, nondistended, nontender; bowel sounds are present in all four quadrants. EXTREMITIES: No clubbing, cyanosis, or edema. AIRCRAFT MAINTENANCE DIRECTOR: lethargic/qrousable Assessment and Plan Assessment: (1) Encephalopathy ICD Codes: G93.40 - Encephalopathy, unspecified (2) Hemochromatosis ICD Codes: E83.119 - Hemochromatosis Status: Acute (3) GI bleed ICD Codes: K92.2 - GI bleed Status: Acute (4) Liver mass ICD Codes: R16.0 - Hepatomegaly, not elsewhere classified Status: Acute Plan Pt requests DNR and Hospice care...discussed w and attending staff.....overall prognosis is poor.....continue supportive care will sign off thanks Benedict Davenport MD May 14, 2017 11:29
[2017-05-14] MEDS ORDERED: SODIUM PHOSPHATE INJ 15 MMOL in SODIUM CHLORIDE 0.9% INJ 150 ML IV ONE (11:45)
--- NOTE | 2017-05-14 13:27 | HHI.CCPN ---
Subjective Remarks/Hospital Course 76-year-old very pleasant gentleman with history of hepatocellular carcinoma, underlying hemochromatosis with cirrhosis. He has been followed by the [place] transplant service as he was evaluated there for the liver transplant, however was considered as a poor surgical candidate and his transplantation will not be performed. He also has a past medical history of upper GI bleed, BPH and now presents with complaints of black tarry stool for last 2 days. He states he has been nauseous but not vomiting however did spit up a very small amount of red blood today. He complains of generalized abdominal pain for 2 days. Denies any fever, chest pain, sob, focal weakness or numbness. He follows with Dr. Henriquez and had MRI abdomen 04/15/17 that showed 5x3.3x3.4cm lesion in liver. He has not had follow up with GI after GI bleed in 2013. Patient was admitted to medical surgical floor however late last night he developed nausea vomiting of coffee-ground emesis and was transferred to ICU. Subjective: 05/13: The patient is scheduled for repeat EGD this afternoon. Hemoglobin stable. The patient continues on lactulose twice a day ammonia level decreasing. Patient continues to have persistent nausea and continues on Zofran and Reglan, received 6.25 mg IV of Phenergan last evening with resolution of symptoms. 05/14: The patient was noted to have continued acute blood loss early this a.m.. While my arrival the patient was noted to be on a second unit of PRBC being transfused out of 3 units. Per discussion with the patient, he expressed to change his CODE STATUS to DNR. The patient also requested that all blood transfusions be discontinued. Extensive discussion with both patient and , request for hospice. The patient stated he no longer wanted any further interventions, and requested to rest and stated an understanding of the inevitable outcome, secondary to his hepatocellular carcinoma and continued bleeding from his varices. The patient stated that he understands that he has cancer and would like to stop all treatments at this time. Hospice was consulted, extensive discussion with hospice with the family, it has been decided the patient would like to be transferred to [facility] facility. Objective Vital Signs Date Time Temp Pulse Resp B/P (MAP) Pulse Ox O2 Delivery O2 Flow Rate FiO2 05/14/17 10:00 56 05/14/17 08:00 97.9 9 105/59 (74) 96 05/13/17 14:15 Nasal Cannula 2 05/11/17 11:41 21 Intake and Output 05/14/17 05/14/17 05/14/17 07:59 15:59 23:59 Intake Total 10 ml 254 ml Balance 10 ml 254 ml Result Diagram: 05/14/17 0351 05/14/17 0351 Other Results Microbiology Date/Time Source Procedure Growth Status 05/12/17 05:00 Urine Catheterized Urine Urine Culture - Final NO GROWTH IN 48 HOURS. Complete Imaging Last Impressions Abdomen/Pelvis CT 05/11/17 0000 Signed Impressions: Service Date/Time: Thursday, May 11, 2017 09:33 - CONCLUSION: Low-density lesion in the liver related to recent cryoablation of liver mass. Baseline cirrhotic change and stigmata of severe portal hypertension. 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 Colonic diverticulosis Timmy Dawn MD Abdomen X-Ray 05/11/17 0000 Signed Impressions: Service Date/Time: Thursday, May 11, 2017 22:06 - CONCLUSION: 1. NG tube in stomach. Mild ileus. Distended stomach. Contrast in bladder. Shaun Moore MD Objective Remarks GENERAL: Well-nourished, well-developed patient noticeably weak SKIN: Warm and dry. HEAD: Normocephalic. EYES: No scleral icterus. No injection or drainage. NECK: Supple, trachea midline. No JVD or lymphadenopathy. CARDIOVASCULAR: Regular rate and rhythm without murmurs, gallops, or rubs. RESPIRATORY: Breath sounds equal bilaterally. No accessory muscle use. GASTROINTESTINAL: Abdomen soft, non-tender, nondistended. MUSCULOSKELETAL: No cyanosis, or edema. BACK: Nontender without obvious deformity. NEURO EXAM: GCS: M 6 V 5 E 4 Mental Status: The patient is alert and oriented to person, place, and time with normal speech. Cranial Nerves: Pupils are round, reactive to light. Extraocular movements are intact without ptosis. Hearing is normal bilaterally. Voice is normal. Tongue protrudes midline and moves symmetrically. Cranial nerves II-XII grossly intact. Motor strength 5/5 bilateral upper and lower extremities. Reflexes: Biceps, patellar, and Achilles are 2/4 bilaterally. No clonus. A/P Assessment and Plan Coffee-ground emesis Acute blood loss anemia - History of GI bleed - Hemochromatosis and liver cirrhosis - Gastroenterology following-Dr. Davenport - Protonix drip - Octreotide drip - Series of H&H- Hgb 8.9->7.0, transfusion of 2 units of PRBCs prior to cessation Hepatocellular carcinoma - Supportive care - Discussed with Dr. Scott (environmental quality analyst) requests from patient to stop all medical intervention Hyperammonemia - With preserved mentation - The patient requests to stop all treatment with lactulose understands hyper- ammonemia will eventually possibly cause encephalopathy, the patient and stated an understanding and requests to go to hospice Hypertension - Hytrin - Lisinopril Elevated INR - Due to liver failure - Vitami Hypothyroidism - Synthroid MSK: Critical illness polyneuropathy -PT evaluation and treat DVT GI prophylaxis - Teds SCDs - No pharmacological prophylaxis due to active GI bleed - Protonix infusions Dispo: Discussed with patient's and sons, and BACK TUFTER at bedside. Conference with patient at his request this a.m.. Explanation of DNR provided, patient stated a request to be made DNR. Discussed extensively with patient palliative care services to be provided and hospice. The patient requested to be transferred to hospice as soon as possible. The patient requested that blood transfusions be stopped and medications be stopped at this time. All questions answered. Conference with Mrs. Brenner with patient and separately at her request. Mrs. Brenner also request that patient be transferred to hospice and it is the family's wishes. We'll discontinue all infusions upon transfer of patient to hospice. Critical Care: This patient remains critically ill with one or more organ systems which are or may become a threat to life. I have spent in excess of 61 minutes discontinuously in the care and management of this patient. This time is exclusive of procedures, and includes, but is not limited to, evaluation of the patient, review of the medical record, discussions with family, consultants, nursing staff, or respiratory therapy, and documentation in the medical record. Physician Dolores Alcantar MD May 14, 2017 13:27
--- NOTE | 2017-05-14 13:31 | HHI.DS ---
Discharge Summary Admission Date May 11, 2017 at 11:12 Admitting Diagnosis GI bleed (1) Chronic thrombocytopenia Status: Chronic (2) Liver mass ICD Code: R16.0 - Hepatomegaly, not elsewhere classified Status: Acute (3) GI bleed ICD Code: K92.2 - GI bleed Status: Acute (4) HTN (hypertension) ICD Code: I10 - HTN (hypertension) Status: Acute (5) Abdominal pain ICD Code: R10.9 - Abdominal pain Status: Acute (6) Anemia due to acute blood loss ICD Code: D62 - Anemia due to acute blood loss Status: Acute (7) Hypothyroidism ICD Code: E03.9 - Hypothyroidism Status: Acute (8) Hemochromatosis ICD Code: E83.119 - Hemochromatosis Status: Acute (9) Diverticulitis ICD Code: K57.92 - Diverticulitis Status: Chronic Brief History 76yo M with PMH of presumed hepatocellular carcinoma, hemochromatosis, cirrhosis , upper GI bleed, BPH presents to the ED with c/o black tarry stool for 2 days. States he has been nauseous but not vomiting and did spit up a very small amount of red blood today. Pt complains of generalized abdominal pain for 2 days. Denies any fever, chest pain, sob, focal weakness or numbness. He follows with Dr. Henriquez and had MRI abdomen 04/15/17 that showed 5x3.3x3.4cm lesion in liver. Pt is to follow up in 8 weeks with repeat lab and repeat MRI in 16 weeks. Pt has not had follow up with GI after GI bleed in 2013. Has elevated ammonia level but is completely lucid and able to answer all questions totally appropriately CBC/BMP: 05/14/17 0351 05/14/17 0351 Significant Findings Laboratory Tests Test 05/11/17 21:25 05/11/17 22:45 05/12/17 01:57 05/12/17 05:38 Red Blood Count 3.01 MIL/MM3 (4.50-5.90) 2.86 MIL/MM3 (4.50-5.90) 2.90 MIL/MM3 (4.50-5.90) Hemoglobin 11.0 GM/DL (13.0-17.0) 10.7 GM/DL (13.0-17.0) 10.6 GM/DL (13.0-17.0) Hematocrit 32.2 % (39.0-51.0) 30.7 % (39.0-51.0) 31.1 % (39.0-51.0) Mean Corpuscular Volume 106.9 FL (80.0-100.0) 107.6 FL (80.0-100.0) 107.4 FL (80.0-100.0) Mean Corpuscular Hemoglobin 36.6 PG (27.0-34.0) 37.5 PG (27.0-34.0) 36.6 PG (27.0-34.0) Platelet Count 104 TH/MM3 (150-450) 95 TH/MM3 (150-450) 106 TH/MM3 (150-450) Neutrophils (%) (Auto) 81.3 % (16.0-70.0) Monocytes (%) (Auto) 8.5 % (0.0-8.0) Neutrophils # (Auto) 8.8 TH/MM3 (1.8-7.7) Prothrombin Time 15.9 SEC (9.8-11.6) Blood Urea Nitrogen 39 MG/DL (7-18) Creatinine 1.31 MG/DL (0.60-1.30) Random Glucose 136 MG/DL (74-106) Total Protein 6.3 GM/DL (6.4-8.2) Albumin 2.5 GM/DL (3.4-5.0) Calcium Level 8.2 MG/DL (8.5-10.1) Aspartate Amino Transf (AST/SGOT) 58 U/L (15-37) Total Bilirubin 3.1 MG/DL (0.2-1.0) Estimat Glomerular Filtration Rate 53 ML/MIN (>89) Ammonia 179 MCMOL/L (11-32) Test 05/12/17 14:51 05/12/17 17:56 05/13/17 03:52 05/13/17 12:18 White Blood Count 11.8 TH/MM3 (4.0-11.0) 11.6 TH/MM3 (4.0-11.0) Red Blood Count 2.78 MIL/MM3 (4.50-5.90) 2.70 MIL/MM3 (4.50-5.90) 2.42 MIL/MM3 (4.50-5.90) Hemoglobin 10.0 GM/DL (13.0-17.0) 9.8 GM/DL (13.0-17.0) 8.9 GM/DL (13.0-17.0) Hematocrit 30.3 % (39.0-51.0) 29.5 % (39.0-51.0) 26.2 % (39.0-51.0) Mean Corpuscular Volume 109.2 FL (80.0-100.0) 109.2 FL (80.0-100.0) 108.1 FL (80.0-100.0) Mean Corpuscular Hemoglobin 36.0 PG (27.0-34.0) 36.1 PG (27.0-34.0) 36.8 PG (27.0-34.0) Platelet Count 109 TH/MM3 (150-450) 101 TH/MM3 (150-450) 87 TH/MM3 (150-450) Prothrombin Time 15.5 SEC (9.8-11.6) Blood Urea Nitrogen 55 MG/DL (7-18) Random Glucose 132 MG/DL (74-106) Total Protein 5.7 GM/DL (6.4-8.2) Albumin 2.4 GM/DL (3.4-5.0) Calcium Level 7.7 MG/DL (8.5-10.1) Aspartate Amino Transf (AST/SGOT) 52 U/L (15-37) Total Bilirubin 2.8 MG/DL (0.2-1.0) Estimat Glomerular Filtration Rate 58 ML/MIN (>89) Ammonia 89 MCMOL/L (11-32) Test 05/14/17 03:51 Red Blood Count 1.91 MIL/MM3 (4.50-5.90) Hemoglobin 7.0 GM/DL (13.0-17.0) Hematocrit 20.5 % (39.0-51.0) Mean Corpuscular Volume 107.3 FL (80.0-100.0) Mean Corpuscular Hemoglobin 36.6 PG (27.0-34.0) Platelet Count 79 TH/MM3 (150-450) Blood Urea Nitrogen 39 MG/DL (7-18) Random Glucose 131 MG/DL (74-106) Total Protein 5.0 GM/DL (6.4-8.2) Albumin 2.0 GM/DL (3.4-5.0) Calcium Level 7.2 MG/DL (8.5-10.1) Phosphorus Level 1.9 MG/DL (2.5-4.9) Aspartate Amino Transf (AST/SGOT) 57 U/L (15-37) Total Bilirubin 2.4 MG/DL (0.2-1.0) Estimat Glomerular Filtration Rate 68 ML/MIN (>89) Protein Corrected Calcium 8.3 MG/DL (8.5-10.1) Hospital Course 76-year-old very pleasant gentleman with history of hepatocellular carcinoma, underlying hemochromatosis with cirrhosis. He has been followed by the [place] transplant service as he was evaluated there for the liver transplant, however was considered as a poor surgical candidate and his transplantation will not be performed. He also has a past medical history of upper GI bleed, BPH and now presents with complaints of black tarry stool for last 2 days. He states he has been nauseous but not vomiting however did spit up a very small amount of red blood today. He complains of generalized abdominal pain for 2 days. Denies any fever, chest pain, sob, focal weakness or numbness. He follows with Dr. Henriquez and had MRI abdomen 04/15/17 that showed 5x3.3x3.4cm lesion in liver. He has not had follow up with GI after GI bleed in 2013. Patient was admitted to medical surgical floor however late last night he developed nausea vomiting of coffee-ground emesis and was transferred to ICU. Subjective: 05/13: The patient is scheduled for repeat EGD this afternoon. Hemoglobin stable. The patient continues on lactulose twice a day ammonia level decreasing. Patient continues to have persistent nausea and continues on Zofran and Reglan, received 6.25 mg IV of Phenergan last evening with resolution of symptoms. 05/14: The patient was noted to have continued acute blood loss early this a.m.. While my arrival the patient was noted to be on a second unit of PRBC being transfused out of 3 units. Per discussion with the patient, he expressed to change his CODE STATUS to DNR. The patient also requested that all blood transfusions be discontinued. Extensive discussion with both patient and , request for hospice. The patient stated he no longer wanted any further interventions, and requested to rest and stated an understanding of the inevitable outcome, secondary to his hepatocellular carcinoma and continued bleeding from his varices. The patient stated that he understands that he has cancer and would like to stop all treatments at this time. Hospice was consulted, extensive discussion with hospice with the family, it has been decided the patient would like to be transferred to [facility] facility. Pt Condition on Discharge: Stable Discharge Disposition: Hospice/Med Facility Discharge Instructions DIET: Follow Instructions for: Full Liquid Diet Additional Diet Instructions: Clear liquid diet Activities you can perform: Continue Dolores Arora MD May 14, 2017 13:31
== END 2017-05-14 14:00 | disposition hospice, inpatient (51) | DRG 299 ==
LOC: NEPE 07:17 → NEDA 11:12 → N04A 16:34 → HIMW 22:35
PROVIDERS: ADMIT Hospitalist; ATTEND Internal Medicine Critical Care Medicine
PROC: 0DJ08ZZ Inspection of Upper Intestinal Tract, Via Natural or Artificial Opening Endoscopic (ICD-10-PCS; principal; 2017-05-11 19:33)
PROC: 0DJ08ZZ Inspection of Upper Intestinal Tract, Via Natural or Artificial Opening Endoscopic (ICD-10-PCS; 2017-05-13)
PROC: 30233N1 Transfusion of Nonautologous Red Blood Cells into Peripheral Vein, Percutaneous Approach (ICD-10-PCS; 2017-05-14)
DX: I86.4 Gastric varices (principal); I81 Portal vein thrombosis; G93.40 Encephalopathy, unspecified; G62.81 Critical illness polyneuropathy; K92.0 Hematemesis; C22.0 Liver cell carcinoma; K76.6 Portal hypertension; D62 Acute posthemorrhagic anemia; K57.92 Diverticulitis of intestine, part unspecified, without perforation or abscess without bleeding; K92.1 Melena; K74.60 Unspecified cirrhosis of liver; I10 Essential (primary) hypertension; E03.9 Hypothyroidism, unspecified; E83.119 Hemochromatosis, unspecified; N40.0 Benign prostatic hyperplasia without lower urinary tract symptoms; Z51.5 Encounter for palliative care; D69.6 Thrombocytopenia, unspecified; Z66 Do not resuscitate; K21.9 Gastro-esophageal reflux disease without esophagitis; Z88.5 Allergy status to narcotic agent; Z88.8 Allergy status to other drugs, medicaments and biological substances
CPT/HCPCS: 36430; 74000; 74177; 80048; 80053; 80076; 81001; 82140; 83690; 83735; 84100; 84439; 84443; 85025; 85027; 85610; 85730; 86850; 86900; 86901; 86920; 87086; 87641; 94150; C9113; J2270; J2354; J2405; J2550; J2765; J3430; J7030; J7040; P9016; Q9967